=== PATIENT | female | born 1955 | race Caucasian/White ===

== ENCOUNTER 2018-10-29 05:13 | Inpatient (IN) | payer BC ==
[~2018-10-29] VITALS: Ht 165.1 cm; Wt 85.3 kg
[2018-10-29] VITALS (7 sets, daily range): BP systolic 94–108; BP diastolic 49–83
[~2018-10-29 05:13] MED LIST: BENICAR20 MG PO; NORCO 10-325 T1 EACH PO; PHENYTOIN SODI300 MG PO; SPIRONOLACTONE25 MG PO
--- OUTSIDE RECORDS SUMMARY | 2018-10-29 05:51 | XMS REPORT | Continuity of Care Document ---
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 Name Role Phone [facility] [email or web address] Information [email or web address] Unavailable Unavailable Problems Problem Status Onset Date Classification Date Reported Comments Source LUMBAR STENOSIS, SPONDYLOSIS, DISC DEGEN Active 11/17/2016 [facility] COPD (Confirmed) Active Problem 12/13/2016 [facility] Goiter Active Problem 12/13/2016 [facility] Hypertension Active Problem 12/13/2016 [facility] Seizures Active Problem 12/13/2016 [facility] Lumbar stenosis Active Problem 12/13/2016 [facility] Medications Medication Details Route Status Patient Instructions Ordering Provider Order Date Source tizanidine 4 mg oral capsule 4 mg=1 cap, PO, Q8H, PRN for muscle spasms, # 90 cap, 0 Refill(s), Pharmacy: [facility]/pharmacy #[id number] Active 12/10/2016 [facility] clindamycin 150 mg oral capsule 150 mg=1 cap, PO, Q6H, X 5 day, # 20 cap, 0 Refill(s), Pharmacy: [facility]/pharmacy #[id number] Active 12/10/2016 [facility] {21 (Methylprednisolone 4 MG Oral Tablet [Medrol]) } Pack [Medrol Dosepak] See Instructions, PO, Take by mouth as directed on label., # 1 Pack, 0 Refill(s), Pharmacy: [facility]/pharmacy #[id number] Active 12/10/2016 [facility] Acetaminophen 325 MG / Hydrocodone Bitartrate 10 MG Oral Tablet [[place] 10/325] 1 tab, PO, Q4H, PRN for pain, X 4 day, # 24 tab, 0 Refill(s) Active 12/10/2016 [facility] Protonix 40 mg, Route: IVP, Drug form: INJ, Daily, Dosing Weight 78.636, kg, Start date: 12/10/16 9:00:00 CDT, Duration: 30 day, Stop date: 01/08/17 9:00:00 CDTNotes: For IV push reconstitute with 10 ml 0.9% sodium chloride and push over 2 minutes. (Same as: Protonix) Inactive 12/10/2016 [facility] pneumococcal capsular polysaccharide type 1 vaccine / pneumococcal capsular polysaccharide type 10A vaccine / pneumococcal capsular polysaccharide type 11A vaccine / pneumococcal capsular polysaccharide type 12F vaccine / pneumococcal capsular polysacchar 0.5 mL, Route: IM, Drug Form: INJ, Daily, Start date: 12/10/16 9:00:00 CDT, Stop date: 12/10/16 23:59:00 CDTNotes: (Same as: Pneumovax 23) Inactive 12/10/2016 [facility] Dilantin 500 mg, 5 cap, Route: PO, Drug form: ERCAP, Bedtime, Dosing Weight 78.636, kg, Start date: 12/09/16 21:00:00 CDT, Duration: 30 day, Stop date: 01/07/17 21:00:00 CDTNotes: (Same as: Dilantin) Do not open, crush, or chew. No Longer Active 12/10/2016 [facility] Dexamethasone 4 mg, 1 mL, Route: IVP, Drug form: INJ, Q12H, Dosing Weight 78.636, kg, Start date: 12/09/16 21:00:00 CDT, Duration: 30 day, Stop date: 01/08/17 9:00:00 CDTNotes: Concentration: 4mg/ml No Longer Active 12/10/2016 [facility] Cefazolin 2 gm, Route: IVPB, ABXQ8H, Dosing Weight 78.636, kg, Start date: 12/09/16 18:30:00 CDT, Duration: 24 hr, Stop date: 12/10/16 10:30:00 CDT, ABX Indication: Surgical ProphylaxisNotes: (Same As: Jayden Byrd zol) MEDICATION WASTE Product Size: 1000 mg Product Wasted: ___ mg No Longer Active 12/09/2016 [facility] Docusate Sodium 100 MG Oral Capsule [Colace] 100 mg, 1 cap, Route: PO, Drug form: CAP, BID, Dosing Weight 78.636, kg, Start date: 12/09/16 17:00:00 CDT, Duration: 30 day, Stop date: 01/08/17 9:00:00 CDTNotes: (Same as: Colace) (Do Not Crush) No Longer Active 12/09/2016 [facility] Benzocaine 15 MG / Menthol 3.6 MG Lozenge [Cepacol Sore Throat Pain Relief 15/3.6] 1 lozenge, Route: MUCOUS MEM, Drug Form: LANEY, Dosing Weight 78.636, kg, Q2H, PRN Sore Throat, Start date: 12/09/16 15:34:00 CDT, Stop date: 01/08/17 15:33:00 CDTNotes: Cepacol lozenges (Same As: Cepacol Lozenges) Inactive 12/09/2016 [facility] acetaminophen (ANES) Route: IV, Drug form: INJ, ONCE, Stop date: 12/09/16 12:21:00 CDT Inactive 12/09/2016 [facility] vasopressin (ANES) Route: IV, Drug form: INJ, ONCE, Stop date: 12/09/16 12:21:00 CDT Inactive 12/09/2016 [facility] neostigmine (ANES) Route: IV, Drug form: INJ, ONCE, Stop date: 12/09/16 12:21:00 CDT Inactive 12/09/2016 [facility] ondansetron (ANES) Route: IV, Drug form: INJ, ONCE, Stop date: 12/09/16 12:21:00 CDT Inactive 12/09/2016 [facility] glycopyrrolate (ANES) Route: IV, Drug form: INJ, ONCE, Stop date: 12/09/16 12:21:00 CDT Inactive 12/09/2016 [facility] ketOROLAC 30 mg/mL injectable solution 15 mg, 1 mL, Route: IV, Drug form: INJ, Q6H, Dosing Weight 78.636, kg, Start date: 12/09/16 12:00:00 CDT, Duration: 1 day, Stop date: 12/10/16 6:00:00 CDTNotes: (Same as:Toradol) IV bolus must be given >15 seconds. Give IM administration slowly and deeply into the muscle. Not for use > 4 days. No Longer Active 12/09/2016 [facility] Ofirmev 1,000 mg, 100 mL, Route: IV, Drug form: INJ, Q6H, Dosing Weight 78.636, kg, for > or=50 kg, Start date: 12/09/16 12:00:00 CDT, Duration: 2 doses or times, Stop date: 12/09/16 18:00:00 CDTNotes: Infuse over 15 minutes Do not exceed 4gm/day of acetaminophen MEDICATION WASTE Product Size: 1000 mg Product Wasted: ___ mg Inactive 12/09/2016 [facility] ceFAZolin (ANES) Route: IV, Drug form: INJ, ONCE, Stop date: 12/09/16 11:05:00 CDT Inactive 12/09/2016 [facility] 120 ACTUAT Albuterol 0.1 MG/ACTUAT / Ipratropium [place] 0.02 MG/ACTUAT Metered Dose Inhaler [Combivent 20/100] 1 puff, Route: INHALER, Drug Form: AERO, Dosing Weight 78.636, kg, RQID, Start date: 12/09/16 11:00:00 CDT, Duration: 30 day, Stop date: 01/08/17 7:00:00 CDTNotes: Same as: Combivent Respimat WASTE: Aerosol - Return to Pharmacy No Longer Active 12/09/2016 [facility] fentaNYL (ANES) Route: IV, Drug form: INJ, ONCE, Stop date: 12/09/16 10:55:00 CDT Inactive 12/09/2016 [facility] ketAMINE (ANES) Route: IV, Drug form: INJ, ONCE, Stop date: 12/09/16 10:55:00 CDT Inactive 12/09/2016 [facility] propofol (ANES) Route: IV, Drug form: INJ, ONCE, Stop date: 12/09/16 10:55:00 CDT Inactive 12/09/2016 [facility] rocuronium (ANES) Route: IV, Drug form: INJ, ONCE, Stop date: 12/09/16 10:55:00 CDT Inactive 12/09/2016 [facility] ePHEDrine (ANES) Route: IV, Drug form: INJ, ONCE, Stop date: 12/09/16 10:55:00 CDT Inactive 12/09/2016 [facility] lidocaine (ANES) Route: IV, Drug form: INJ, ONCE, Stop date: 12/09/16 10:55:00 CDT Inactive 12/09/2016 [facility] Zofran 4 mg, 2 mL, Route: IV, Drug form: INJ, Q8H, Dosing Weight 78.636, kg, PRN Nausea, Start date: 12/09/16 10:25:00 CDT, Duration: 30 day, Stop date: 01/08/17 10:24:00 CDTNotes: (Same as: Zofran) MEDICATION WASTE Product Size: 4 mg Product Wasted: ___ mg No Longer Active 12/09/2016 [facility] Acetaminophen 325 MG / Hydrocodone Bitartrate 10 MG Oral Tablet [[place] 10/325] 1 tab, Route: PO, Drug Form: TAB, Dosing Weight 78.636, kg, Q4H, PRN Pain Score 1-3, Start date: 12/09/16 10:24:00 CDT, Duration: 30 day, Stop date: 01/08/17 10:23:00 CDTNotes: Do not exceed 4gm/day of acetaminophen. (Same as: [place] 325/10) No Longer Active 12/09/2016 [facility] Morphine 2 mg, 0.5 mL, Route: IVP, Drug form: SOLN, Q4H, Dosing Weight 78.636, kg, PRN Pain Score 4-6, Start date: 12/09/16 10:24:00 CDT, Stop date: 01/08/17 10:23:00 CDTNotes: (Same as:MORPhine Sulfate) No Longer Active 12/09/2016 [facility] Melatonin 3 mg, 1 tab, Route: PO, Drug form: TAB, Bedtime, Dosing Weight 78.636, kg, PRN as needed for insomnia, Start date: 12/09/16 10:24:00 CDT, Duration: 30 day, Stop date: 01/08/17 10:23:00 CDT, ..Notes: (Same as: Melatonin) No Longer Active 12/09/2016 [facility] Diphenhydramine 25 mg, 1 cap, Route: PO, Drug form: CAP, TID, Dosing Weight 78.636, kg, PRN Itching, Start date: 12/09/16 10:24:00 CDT, Duration: 30 day, Stop date: 01/08/17 10:23:00 CDTNotes: (Same as: Benadryl) No Longer Active 12/09/2016 [facility] tizanidine 4 mg, 1 tab, Route: PO, Drug form: TAB, Q8H, Dosing Weight 78.636, kg, PRN as needed for muscle spasm, Start date: 12/09/16 10:24:00 CDT, Duration: 30 day, Stop date: 01/08/17 10:23:00 CDTNotes: (Same As: Zanaflex) No Longer Active 12/09/2016 [facility] sennosides, [facility] 8.6 mg, 1 tab, Route: PO, Drug Form: TAB, Dosing Weight 78.636, kg, Daily, PRN Constipation, Start date: 12/09/16 10:24:00 CDT, Duration: 30 day, Stop date: 01/08/17 10:23:00 CDTNotes: (Same as: Senokot) No Longer Active 12/09/2016 [facility] Phenergan 12.5 mg, 0.5 mL, Route: IVPB, Drug form: INJ, Q4H, Dosing Weight 78.636, kg, PRN Nausea & Vomiting, Start date: 12/09/16 10:24:00 CDT, Duration: 30 day, Stop date: 01/08/17 10:23:00 CDTNotes: Do not give IV push. (Same as: Phenergan) No Longer Active 12/09/2016 [facility] sodium chloride 0.9% 1000 ml INJ 1,000 mL 1,000 mL, Rate: 65 ml/hr, Infuse over: 15.4 hr, Route: IV, Dosing Weight 78.636 kg, Total Volume: 1,000, Start date: 12/09/16 10:24:00 CDT, Duration: 30 day, Stop date: 01/08/17 10:23:00 CDT No Longer Active 12/09/2016 [facility] cyclobenzaprine 10 mg, 1 tab, Route: PO, Drug form: TAB, TID, Dosing Weight 78.636, kg, PRN Spasm, Start date: 12/09/16 10:23:00 CDT, Duration: 30 day, Stop date: 01/08/17 10:22:00 CDTNotes: (Same As: Flexeril) No Longer Active 12/09/2016 [facility] Benzocaine 15 MG / Menthol 3.6 MG Lozenge [Cepacol Sore Throat Pain Relief 15/3.6] 1 lozenge, Route: PO, Drug Form: LANEY, Dosing Weight 78.636, kg, Q2H, PRN as needed for sore throat, Start date: 12/09/16 10:23:00 CDT, Duration: 30 day, Stop date: 01/08/17 10:22:00 CDTNotes: Cepacol lozenges Dispense 1 box=16 lozenges (Same As: Cepacol Lozenges) No Longer Active 12/09/2016 [facility] Ambien 10 mg, 2 tab, Route: PO, Drug form: TAB, Bedtime, Dosing Weight 78.636, kg, PRN Insomnia, Start date: 12/09/16 10:23:00 CDT, Duration: 30 day, Stop date: 01/08/17 10:22:00 CDTNotes: (Same As: Ambien) No Longer Active 12/09/2016 [facility] midazolam (ANES) Route: IV, Drug form: SOLN, ONCE, Stop date: 12/09/16 10:20:00 CDT Inactive 12/09/2016 [facility] Ondansetron 4 mg, 2 mL, Route: IVP, Drug form: INJ, ONCE, Dosing Weight 78.636, kg, PRN Nausea & Vomiting, Start date: 12/09/16 10:05:00 CDTNotes: (Same as: Zofran) MEDICATION WASTE Product Size: 4 mg Product Wasted: ___ mg Inactive 12/09/2016 [facility] Labetalol 10 mg, 2 mL, Route: IVP, Drug form: INJ, Q5Min, Dosing Weight 78.636, kg, PRN Elevated BP, Start date: 12/09/16 10:05:00 CDT, Duration: 5 doses or times, Stop date: 12/10/16 0:00:00 CDT Inactive 12/09/2016 [facility] Hydralazine 10 mg, 0.5 mL, Route: IVP, Drug form: INJ, Q20Min, Dosing Weight 78.636, kg, PRN Elevated BP, Start date: 12/09/16 10:05:00 CDT, Duration: 2 doses or times, Stop date: 12/10/16 0:00:00 CDTNotes: (Same as: Apresoline) Push over 5 minutes Inactive 12/09/2016 [facility] Hydromorphone 0.5 mg, 0.25 mL, Route: IVP, Drug form: INJ, Q5Min, Dosing Weight 78.636, kg, PRN Pain Score 7-10, Start date: 12/09/16 10:05:00 CDT, Duration: 4 doses or times, Stop date: 12/10/16 0:00:00 CDTNotes: Same as: Dilaudid Inactive 12/09/2016 [facility] Oxycodone 5 mg, 1 tab, Route: PO, Drug form: TAB, Q4H, Dosing Weight 78.636, kg, PRN Pain Score 7-10, Start date: 12/09/16 10:05:00 CDT, Duration: 30 day, Stop date: 01/08/17 10:04:00 CDTNotes: (Same as: Roxic odone) Inactive 12/09/2016 [facility] Flumazenil 0.2 mg, 2 mL, Route: IVP, Drug form: INJ, PRN, Dosing Weight 78.636, kg, PRN Benzodiazepine Reversal, Initial dose, Start date: 12/09/16 10:05:00 CDT, Duration: 30 day, Stop date: 01/08/17 10:04:00 C DTNotes: (Same as: Romazicon) Inactive 12/09/2016 [facility] Naloxone 0.4 mg, 1 mL, Route: IVP, Drug form: INJ, Q2MIN, Dosing Weight 78.636, kg, PRN Narcotic Reversal, Start date: 12/09/16 10:05:00 CDT, Duration: 8 doses or times, Stop date: 12/10/16 0:00:00 CDTNotes: Same as Narcan Inactive 12/09/2016 [facility] LR 1000 mL INJ (ANES) Route: IV, Total Volume: 1,000, Start date: 12/09/16 9:45:00 CDT, Stop date: 12/09/16 10:45:00 CDT Inactive 12/09/2016 [facility] gabapentin 300 MG Oral Capsule 300 mg, 1 cap, Route: PO, Drug form: CAP, ONCE, Dosing Weight 78.636, kg, Priority: NOW, Start date: 12/09/16 9:09:00 CDT, Stop date: 12/09/16 9:09:00 CDT Inactive 12/09/2016 [facility] Amlodipine 5 mg, 1 tab, Route: PO, Drug form: TAB, Daily, Dosing Weight 78.636, kg, Start date: 12/09/16 9:00:00 CDT, Duration: 30 day, Stop date: 01/07/17 9:00:00 CDTNotes: (Same as: Norvasc) No Longer Active 12/09/2016 [facility] Alprazolam 0.25 mg, PO, PRN Active 12/07/2016 [facility] Triamcinolone Acetonide in Absorbase 1 appl, TOP Active 12/07/2016 [facility] Hydroxyzine 25 mg, PO, QID Active 12/07/2016 [facility] Acetaminophen 325 MG / Hydrocodone Bitartrate 5 MG Oral Tablet 1 tab, PO, PRN No Longer Active 12/07/2016 [facility] Dilantin 500 mg, PO, Bedtime Active 12/07/2016 [facility] Allergies, Adverse Reactions, Alerts No Known Medication Allergies Immunizations Immunization Date Given Site Status Last Updated Comments Source pneumococcal 23-valent vaccine 12/10/2016 Left Deltoid completed [facility] Results Order Name Results Value Reference Range Date Interpretation Comments Source ELECTROLYTES AGAP 6.6 10.0 - 20.0 12/07/2016 [facility] ELECTROLYTES eGFR 102 12/07/2016 Result Comment: The eGFR is calculated using the CKD-EPI formula. In most young, healthy individuals the eGFR will be >90 mL/min/1.73m2. The eGFR declines with age. An eGFR of 60-89 may be normal in some populations, particularly the elderly, for whom the CKD-EPI formula has not been extensively validated. Use of the eGFR is not recommended in the following populations:

Individuals with unstable creatinine concentrations, including patients and those with serious co-morbid conditions.

Patients with extremes in muscle mass or diet.

The data above are obtained from the National Kidney Disease Education Program (NKDEP) which additionally recommends that when the eGFR is used in patients with extremes of body mass index for purposes of drug dosing, the eGFR should be multiplied by the estimated BMI. [facility] ELECTROLYTES Chloride Lvl 105 95 - 109 12/07/2016 [facility] ELECTROLYTES Potassium Lvl 4.6 3.5 - 5.1 12/07/2016 [facility] ELECTROLYTES CO2 32 24 - 32 12/07/2016 [facility] ELECTROLYTES Calcium Lvl 8.9 8.5 - 10.5 12/07/2016 [facility] ELECTROLYTES Glucose Lvl 74 70 - 99 12/07/2016 [facility] ELECTROLYTES Sodium Lvl 139 135 - 145 12/07/2016 [facility] ELECTROLYTES Creatinine Lvl 0.54 0.50 - 1.40 12/07/2016 [facility] ELECTROLYTES BUN 11 7 - 22 12/07/2016 [facility] HEMATOLOGY Basophils 0.7 0.0 - 1.0 12/07/2016 [facility] HEMATOLOGY Eosinophils 5.1 0.0 - 4.0 12/07/2016 [facility] HEMATOLOGY Segs-Bands # 4.0 1.5 - 8.1 12/07/2016 [facility] HEMATOLOGY Basophils # 0.1 0.0 - 0.2 12/07/2016 [facility] HEMATOLOGY Monocytes # 0.6 0.0 - 0.8 12/07/2016 [facility] HEMATOLOGY Lymphocytes # 2.4 1.0 - 5.5 12/07/2016 [facility] HEMATOLOGY Eosinophils # 0.4 0.0 - 0.5 12/07/2016 [facility] HEMATOLOGY Segs 53.7 45.0 - 75.0 12/07/2016 [facility] HEMATOLOGY Lymphocytes 32.6 20.0 - 40.0 12/07/2016 [facility] HEMATOLOGY Monocytes 7.9 2.0 - 12.0 12/07/2016 [facility] HEMATOLOGY WBC 7.4 3.7 - 10.4 12/07/2016 [facility] HEMATOLOGY Hct 39.6 36.0 - 48.0 12/07/2016 [facility] HEMATOLOGY MCV 90.3 80.0 - 98.0 12/07/2016 [facility] HEMATOLOGY MCHC 33.3 32.0 - 36.0 12/07/2016 [facility] HEMATOLOGY RDW 13.4 11.5 - 14.5 12/07/2016 [facility] HEMATOLOGY MCH 30.0 27.0 - 31.0 12/07/2016 [facility] HEMATOLOGY Hgb 13.2 12.0 - 16.0 12/07/2016 [facility] HEMATOLOGY RBC 4.38 4.20 - 5.40 12/07/2016 [facility] HEMATOLOGY MPV 7.5 7.4 - 10.4 12/07/2016 [facility] HEMATOLOGY Platelet 265 133 - 450 12/07/2016 [facility] Pathology Reports No Data Provided for This Section Diagnostic Reports No Data Provided for This Section Consultation Notes No Data Provided for This Section Discharge Summaries No Data Provided for This Section History and Physicals No Data Provided for This Section Vital Signs Vital Sign Value Date Comments Source Systolic (mm Hg) 129 12/10/2016 [facility] Diastolic (mm Hg) 79 12/10/2016 [facility] Heart Rate 80 12/10/2016 [facility] Respitory Rate 18 12/10/2016 [facility] Systolic (mm Hg) 110 12/10/2016 [facility] Diastolic (mm Hg) 69 12/10/2016 [facility] Respitory Rate 18 12/10/2016 [facility] Temperature Oral (F) 97.4 F 12/10/2016 [facility] Heart Rate 79 12/10/2016 [facility] Systolic (mm Hg) 109 12/10/2016 [facility] Diastolic (mm Hg) 57 12/10/2016 [facility] Temperature Oral (F) 98.1 F 12/10/2016 [facility] Heart Rate 80 12/10/2016 [facility] Respitory Rate 16 12/10/2016 [facility] Temperature Oral (F) 97.6 F 12/10/2016 [facility] Weight 78.636 12/09/2016 [facility] BMI Calculated 28.85 12/09/2016 [facility] Height 165.1 cm 12/09/2016 [facility] Weight 78.636 12/07/2016 [facility] BMI Calculated 28.85 12/07/2016 [facility] Height 165.1 cm 12/07/2016 [facility] Encounters Location Location Details Encounter Type Encounter Number Reason For Visit Attending Provider ADM Date DC Date Status Source [facility] Bedded Outpatient [id number] Steve Tam 12/09/2016 12/10/2016 [facility] Procedures Procedure Code Date Perfomer Comments Source Incision AND drainage [id number] [facility] Operative procedure on foot [id number] [facility] Procedure on back [id number] [facility] Tonsillectomy [id number] [facility] Assessment and Plan Assessment and Plan Date Source Extracted from:Title: POD#1 Author: Boyd Cano Date: 12/10/16 POD#1 Afeb VSS Hemovac with 270 out since surgery She has moderate pain at the wound; she feels her legs are wobbly but stronger than pre-op Motor is without chnage on exam but she looks to be moving about better than pre-op Sensory is equal. Reflexes are symmetrical Wound is intact without EED. Hemovac is occluded. Can not get it to drain so I removed it. Cleaned and redressed the wound. Voiding well. No BM Taking po well. No N/V A/P Home RX her a walker as I feel it will benefit her F/U in 4 weeks RXs given D/W Tam Cano PA-C 12/10/2016 [facility] Plan of Care No Data Provided for This Section Social History Social History Date Source Social History TypeResponse Alcohol Past Smoking Status Former smoker; Type: Cigarettes; Number of years: 30; Stopped at age: 43; Exposure to Tobacco Smoke None; Cigarette Smoking Last 365 Days No; Reg Smoking Cessation Counseling No 12/07/2016 [facility] Family History No Data Provided for This Section Advance Directives No Data Provided for This Section Functional Status No Data Provided for This Section
--- OUTSIDE RECORDS SUMMARY | 2018-10-29 05:51 | XMS REPORT | Summary of Care ---
Author Author [facility] Organization [facility] Address Unknown Phone Unavailable Encounter KEATON Soto(LARS) [id number] Date(s): 12/09/16 - 12/10/16 [facility] [address] [employer] provided by [facility] [place] [address]- Discharge Disposition: Home or Self Care Attending Physician: Steve Turcios DO Referring Physician: Steve Turcios DO Vital Signs 1 2 3 Most recent to oldest [Reference Range]: 165.1 cm (12/09/16 8:25 AM) 165.1 cm (12/07/16 10:32 AM) Height 97.4 DegF (12/10/16 7:35 AM) 98.1 DegF (12/10/16 4:15 AM) 97.6 DegF (12/09/16 11:20 PM) Temperature Oral [96.4-99.1 DegF] 129/79 mmHg (12/10/16 10:15 AM) 110/69 mmHg (12/10/16 7:35 AM) 109/57 mmHg (12/10/16 7:00 AM) Blood Pressure [90-140/60-90 mmHg] 18 BRMIN (12/10/16 8:41 AM) 18 BRMIN (12/10/16 7:35 AM) 16 BRMIN (12/10/16 4:15 AM) Respiratory Rate [14-20 BRMIN] 80 bpm (12/10/16 10:15 AM) 79 bpm (12/10/16 7:35 AM) 80 bpm (12/10/16 4:15 AM) Peripheral Pulse Rate [60-100 bpm] 78.636 kg (12/09/16 8:25 AM) 78.636 kg (12/07/16 10:32 AM) Weight 28.85 m2 (12/09/16 8:25 AM) 28.85 m2 (12/07/16 10:32 AM) Body Mass Index Problem List Condition Effective Dates Status Health Status Informant COPD (chronic Active obstructive pulmonary disease)(Confirmed) Goiter(Confirmed) Active Hypertension(Confirm Active ed) Seizures(Confirmed) Active Lumbar Active stenosis(Confirmed) Allergies, Adverse Reactions, Alerts Substance Reaction Severity Status NKDA Active Medications acetaminophen (ANES) Route: IV, Drug form: INJ, ONCE, Stop date: 12/09/16 12:21:00 CDT Start Date: 12/09/16 Stop Date: 12/09/16 Status: Completed acetaminophen-hydrocodone 325 mg-5 mg oral tablet 1 tab, PO, PRN Start Date: 12/07/16 Stop Date: 12/10/16 Status: Discontinued ALPRAZOLam 0.25 mg, PO, PRN Start Date: 12/07/16 Status: Ordered Ambien 10 mg, 2 tab, Route: PO, Drug form: TAB, Bedtime, Dosing Weight 78.636, kg, PRN Insomnia, Start date: 12/09/16 10:23:00 CDT, Duration: 30 day, Stop date: 10:22:00 CDT Notes: (Same As: Ambien) Start Date: 12/09/16 Stop Date: 12/10/16 Status: Discontinued amLODIPine 5 mg, 1 tab, Route: PO, Drug form: TAB, Daily, Dosing Weight 78.636, kg, Start d ate: 12/09/16 9:00:00 CDT, Duration: 30 day, Stop date: 01/07/17 9:00:00 CDT Notes: (Same as: Norvasc) Start Date: 12/09/16 Stop Date: 12/10/16 Status: Discontinued ANES flumazenil 0.2 mg, 2 mL, Route: IVP, Drug form: INJ, PRN, Dosing Weight 78.636, kg, PRN Harjeet zodiazepine Reversal, Initial dose, Start date: 12/09/16 10:05:00 CDT, Duration: 30 day, Stop date: 01/08/17 10:04:00 CDT Notes: (Same as: Romazicon) Start Date: 12/09/16 Stop Date: 12/09/16 Status: Discontinued ANES hydrALAZINE 10 mg, 0.5 mL, Route: IVP, Drug form: INJ, Q20Min, Dosing Weight 78.636, kg, PRN Elevated BP, Start date: 12/09/16 10:05:00 CDT, Duration: 2 doses or times, Stop date: 12/10/16 0:00:00 CDT Notes: (Same as: Apresoline)Push over 5 minutes Start Date: 12/09/16 Stop Date: 12/09/16 Status: Discontinued ANES HYDROmorphone 0.5 mg, 0.25 mL, Route: IVP, Drug form: INJ, Q5Min, Dosing Weight 78.636, kg, NC N Pain Score 7-10, Start date: 12/09/16 10:05:00 CDT, Duration: 4 doses or times , Stop date: 12/10/16 0:00:00 CDT Notes: Same as: Dilaudid Start Date: 12/09/16 Stop Date: 12/09/16 Status: Discontinued ANES labetalol 10 mg, 2 mL, Route: IVP, Drug form: INJ, Q5Min, Dosing Weight 78.636, kg, PRN El evated BP, Start date: 12/09/16 10:05:00 CDT, Duration: 5 doses or times, Stop d ate: 12/10/16 0:00:00 CDT Start Date: 12/09/16 Stop Date: 12/09/16 Status: Discontinued ANES naloxone 0.4 mg, 1 mL, Route: IVP, Drug form: INJ, Q2MIN, Dosing Weight 78.636, kg, PRN N arcotic Reversal, Start date: 12/09/16 10:05:00 CDT, Duration: 8 doses or times, Stop date: 12/10/16 0:00:00 CDT Notes: Same as Narcan Start Date: 12/09/16 Stop Date: 12/09/16 Status: Discontinued ANES ondansetron 4 mg, 2 mL, Route: IVP, Drug form: INJ, ONCE, Dosing Weight 78.636, kg, PRN Naus ea & Vomiting, Start date: 12/09/16 10:05:00 CDT Notes: (Same as: Leonardo) MEDICATION WASTE Product Size: 4 mgProduct Was dante: ___ mg Start Date: 12/09/16 Stop Date: 12/09/16 Status: Discontinued ANES oxyCODONE 5 mg, 1 tab, Route: PO, Drug form: TAB, Q4H, Dosing Weight 78.636, kg, PRN Pain Score 7-10, Start date: 12/09/16 10:05:00 CDT, Duration: 30 day, Stop date: 11/17 10:04:00 CDT Notes: (Same as: Roxicodone) Start Date: 12/09/16 Stop Date: 12/09/16 Status: Discontinued ceFAZolin (ANES) Route: IV, Drug form: INJ, ONCE, Stop date: 12/09/16 11:05:00 CDT Start Date: 12/09/16 Stop Date: 12/09/16 Status: Completed ceFAZolin (SCIP) + sodium chloride 0.9% INJ 100 mL 2 gm, Route: IVPB, ABXQ8H, Dosing Weight 78.636, kg, Start date: 12/09/16 18:30: 00 CDT, Duration: 24 hr, Stop date: 12/10/16 10:30:00 CDT, ABX Indication: Surgi yasmani Prophylaxis Notes: (Same As: Napoleon Byrd) MEDICATION WASTE Product Size: 1000 mgP roduct Wasted: ___ mg Start Date: 12/09/16 Stop Date: 12/10/16 Status: Completed Cepacol Sore Throat 15 mg-3.6 mg mucous membrane lozenge 1 lozenge, Route: MUCOUS MEM, Drug Form: LANEY, Dosing Weight 78.636, kg, Q2H, PRN Sore Throat, Start date: 12/09/16 15:34:00 CDT, Stop date: 01/08/17 15:33:00 CDT Notes: Cepacol lozenges(Same As: Cepacol Lozenges) Start Date: 12/09/16 Stop Date: 12/09/16 Status: Deleted Cepacol Sore Throat Calle Sugar Free 15 mg-3.6 mg mucous membrane lozenge 1 lozenge, Route: PO, Drug Form: LANEY, Dosing Weight 78.636, kg, Q2H, PRN as need ed for sore throat, Start date: 12/09/16 10:23:00 CDT, Duration: 30 day, Stop da te: 01/08/17 10:22:00 CDT Notes: Cepacol lozengesDispense 1 box=16 lozenges (Same As: Cepacol Lozenges) Start Date: 12/09/16 Stop Date: 12/10/16 Status: Discontinued clindamycin 150 mg oral capsule 150 mg=1 cap, PO, Q6H, X 5 day, # 20 cap, 0 Refill(s), Pharmacy: [facility]/pharmacy #[id number] Start Date: 12/10/16 Stop Date: 12/15/16 Status: Ordered Colace 100 mg oral capsule 100 mg, 1 cap, Route: PO, Drug form: CAP, BID, Dosing Weight 78.636, kg, Start d ate: 12/09/16 17:00:00 CDT, Duration: 30 day, Stop date: 01/08/17 9:00:00 CDT Notes: (Same as: Colace) (Do Not Crush) Start Date: 12/09/16 Stop Date: 12/10/16 Status: Discontinued Combivent Respimat CFC free 100 mcg-20 mcg/inh inhalation aerosol 1 puff, Route: INHALER, Drug Form: AERO, Dosing Weight 78.636, kg, RQID, Start d ate: 12/09/16 11:00:00 CDT, Duration: 30 day, Stop date: 01/08/17 7:00:00 CDT Notes: Same as: Combivent RespimatWASTE: Aerosol - Return to Pharmacy Start Date: 12/09/16 Stop Date: 12/10/16 Status: Discontinued cyclobenzaprine 10 mg, 1 tab, Route: PO, Drug form: TAB, TID, Dosing Weight 78.636, kg, PRN Spas m, Start date: 12/09/16 10:23:00 CDT, Duration: 30 day, Stop date: 01/08/17 10:2 2:00 CDT Notes: (Same As: Flexeril) Start Date: 12/09/16 Stop Date: 12/10/16 Status: Discontinued dexamethasone 4 mg, 1 mL, Route: IVP, Drug form: INJ, Q12H, Dosing Weight 78.636, kg, Start da te: 12/09/16 21:00:00 CDT, Duration: 30 day, Stop date: 01/08/17 9:00:00 CDT Notes: Concentration: 4mg/ml Start Date: 12/09/16 Stop Date: 12/10/16 Status: Discontinued Dilantin 500 mg, 5 cap, Route: PO, Drug form: ERCAP, Bedtime, Dosing Weight 78.636, kg, S tart date: 12/09/16 21:00:00 CDT, Duration: 30 day, Stop date: 01/07/17 21:00:00 CDT Notes: (Same as: Dilantin) Do not open, crush, or chew. Start Date: 12/09/16 Stop Date: 12/10/16 Status: Discontinued Dilantin 500 mg, PO, Bedtime Start Date: 12/07/16 Status: Ordered diphenhydrAMINE 25 mg, 1 cap, Route: PO, Drug form: CAP, TID, Dosing Weight 78.636, kg, PRN Itch ing, Start date: 12/09/16 10:24:00 CDT, Duration: 30 day, Stop date: 01/08/17 10 :23:00 CDT Notes: (Same as: Benadryl) Start Date: 12/09/16 Stop Date: 12/10/16 Status: Discontinued ePHEDrine (ANES) Route: IV, Drug form: INJ, ONCE, Stop date: 12/09/16 10:55:00 CDT Start Date: 12/09/16 Stop Date: 12/09/16 Status: Completed fentaNYL (ANES) Route: IV, Drug form: INJ, ONCE, Stop date: 12/09/16 10:55:00 CDT Start Date: 12/09/16 Stop Date: 12/09/16 Status: Completed gabapentin 300 mg oral capsule 300 mg, 1 cap, Route: PO, Drug form: CAP, ONCE, Dosing Weight 78.636, kg, Priori ty: NOW, Start date: 12/09/16 9:09:00 CDT, Stop date: 12/09/16 9:09:00 CDT Start Date: 12/09/16 Stop Date: 12/09/16 Status: Completed glycopyrrolate (ANES) Route: IV, Drug form: INJ, ONCE, Stop date: 12/09/16 12:21:00 CDT Start Date: 12/09/16 Stop Date: 12/09/16 Status: Completed hydrOXYzine 25 mg, PO, QID Start Date: 12/07/16 Status: Ordered ketAMINE (ANES) Route: IV, Drug form: INJ, ONCE, Stop date: 12/09/16 10:55:00 CDT Start Date: 12/09/16 Stop Date: 12/09/16 Status: Completed ketOROLAC 30 mg/mL injectable solution 15 mg, 1 mL, Route: IV, Drug form: INJ, Q6H, Dosing Weight 78.636, kg, Start noreen e: 12/09/16 12:00:00 CDT, Duration: 1 day, Stop date: 12/10/16 6:00:00 CDT Notes: (Same as:Toradol) IV bolus must be given >15 seconds. Give IM administration slowly and deeply into the muscle. Not for use > 4 days. Start Date: 12/09/16 Stop Date: 12/10/16 Status: Completed lidocaine (ANES) Route: IV, Drug form: INJ, ONCE, Stop date: 12/09/16 10:55:00 CDT Start Date: 12/09/16 Stop Date: 12/09/16 Status: Completed LR 1000 mL INJ (ANES) Route: IV, Total Volume: 1,000, Start date: 12/09/16 9:45:00 CDT, Stop date: 11/17 10:45:00 CDT Start Date: 12/09/16 Stop Date: 12/09/16 Status: Completed Medrol Dosepak 4 mg oral tablet See Instructions, PO, Take by mouth as directed on label., # 1 Pack, 0 Refill(s) , Pharmacy: [facility]/pharmacy #[id number] Start Date: 12/10/16 Stop Date: 12/16/16 Status: Ordered melatonin 3 mg, 1 tab, Route: PO, Drug form: TAB, Bedtime, Dosing Weight 78.636, kg, PRN a s needed for insomnia, Start date: 12/09/16 10:24:00 CDT, Duration: 30 day, Stop date: 01/08/17 10:23:00 CDT, .. Notes: (Same as: Melatonin) Start Date: 12/09/16 Stop Date: 12/10/16 Status: Discontinued midazolam (ANES) Route: IV, Drug form: SOLN, ONCE, Stop date: 12/09/16 10:20:00 CDT Start Date: 12/09/16 Stop Date: 12/09/16 Status: Completed morphine Sulfate 2 mg, 0.5 mL, Route: IVP, Drug form: SOLN, Q4H, Dosing Weight 78.636, kg, PRN Pa in Score 4-6, Start date: 12/09/16 10:24:00 CDT, Stop date: 01/08/17 10:23:00 CD T Notes: (Same as:MORPhine Sulfate) Start Date: 12/09/16 Stop Date: 12/10/16 Status: Discontinued morphine Sulfate 4 mg, 1 mL, Route: IVP, Drug form: SOLN, Q4H, Dosing Weight 78.636, kg, PRN Pain Score 7-10, Start date: 12/09/16 10:24:00 CDT, Stop date: 01/08/17 10:23:00 CDT Notes: (Same as:MORPhine Sulfate) Start Date: 12/09/16 Stop Date: 12/10/16 Status: Discontinued neostigmine (ANES) Route: IV, Drug form: INJ, ONCE, Stop date: 12/09/16 12:21:00 CDT Start Date: 12/09/16 Stop Date: 12/09/16 Status: Completed [place] 10/325 oral tablet 1 tab, Route: PO, Drug Form: TAB, Dosing Weight 78.636, kg, Q4H, PRN Pain Score 1-3, Start date: 12/09/16 10:24:00 CDT, Duration: 30 day, Stop date: 01/08/17 10 :23:00 CDT Notes: Do not exceed 4gm/day of acetaminophen. (Same as: [place] 325/10) Start Date: 12/09/16 Stop Date: 12/10/16 Status: Discontinued [place] 10/325 oral tablet 1 tab, PO, Q4H, PRN for pain, X 4 day, # 24 tab, 0 Refill(s) Start Date: 12/10/16 Stop Date: 12/14/16 Status: Ordered Ofirmev 1,000 mg, 100 mL, Route: IV, Drug form: INJ, Q6H, Dosing Weight 78.636, kg, for > or=50 kg, Start date: 12/09/16 12:00:00 CDT, Duration: 2 doses or times, Stop date: 12/09/16 18:00:00 CDT Notes: Infuse over 15 minutesDo not exceed 4gm/day of acetaminophen MEDICAT ION WASTE Product Size: 1000 mgProduct Wasted: ___ mg Start Date: 12/09/16 Stop Date: 12/09/16 Status: Completed ondansetron (ANES) Route: IV, Drug form: INJ, ONCE, Stop date: 12/09/16 12:21:00 CDT Start Date: 12/09/16 Stop Date: 12/09/16 Status: Completed Phenergan 12.5 mg, 0.5 mL, Route: IVPB, Drug form: INJ, Q4H, Dosing Weight 78.636, kg, PRN Nausea & Vomiting, Start date: 12/09/16 10:24:00 CDT, Duration: 30 day, Stop date: 01/08/17 10:23:00 CDT Notes: Do not give IV push. (Same as: Phenergan) Start Date: 12/09/16 Stop Date: 12/10/16 Status: Discontinued pneumococcal 23-valent vaccine 0.5 mL, Route: IM, Drug Form: INJ, Daily, Start date: 12/10/16 9:00:00 CDT, Stop date: 12/10/16 23:59:00 CDT Notes: (Same as: Pneumovax 23) Start Date: 12/10/16 Stop Date: 12/10/16 Status: Discontinued propofol (ANES) Route: IV, Drug form: INJ, ONCE, Stop date: 12/09/16 10:55:00 CDT Start Date: 12/09/16 Stop Date: 12/09/16 Status: Completed Protonix 40 mg, Route: IVP, Drug form: INJ, Daily, Dosing Weight 78.636, kg, Start date: 12/10/16 9:00:00 CDT, Duration: 30 day, Stop date: 01/08/17 9:00:00 CDT Notes: For IV push reconstitute with 10 ml 0.9% sodium chloride and push over 2 minutes. (Same as: Protonix) Start Date: 12/10/16 Stop Date: 12/10/16 Status: Discontinued rocuronium (ANES) Route: IV, Drug form: INJ, ONCE, Stop date: 12/09/16 10:55:00 CDT Start Date: 12/09/16 Stop Date: 12/09/16 Status: Completed senna 8.6 mg, 1 tab, Route: PO, Drug Form: TAB, Dosing Weight 78.636, kg, Daily, PRN C onstipation, Start date: 12/09/16 10:24:00 CDT, Duration: 30 day, Stop date: 11/17 10:23:00 CDT Notes: (Same as: Senokot) Start Date: 12/09/16 Stop Date: 12/10/16 Status: Discontinued sodium chloride 0.9% 1000 ml INJ 1,000 mL 1,000 mL, Rate: 65 ml/hr, Infuse over: 15.4 hr, Route: IV, Dosing Weight 78.636 kg, Total Volume: 1,000, Start date: 12/09/16 10:24:00 CDT, Duration: 30 day, St op date: 01/08/17 10:23:00 CDT Start Date: 12/09/16 Stop Date: 12/10/16 Status: Discontinued tizanidine 4 mg, 1 tab, Route: PO, Drug form: TAB, Q8H, Dosing Weight 78.636, kg, PRN as ne eded for muscle spasm, Start date: 12/09/16 10:24:00 CDT, Duration: 30 day, Stop date: 01/08/17 10:23:00 CDT Notes: (Same As: Zanaflex) Start Date: 12/09/16 Stop Date: 12/10/16 Status: Discontinued tizanidine 4 mg oral capsule 4 mg=1 cap, PO, Q8H, PRN for muscle spasms, # 90 cap, 0 Refill(s), Pharmacy: [facility] /pharmacy #[id number] Start Date: 12/10/16 Status: Ordered Triamcinolone Acetonide in Absorbase 1 appl, TOP Start Date: 12/07/16 Status: Ordered vasopressin (ANES) Route: IV, Drug form: INJ, ONCE, Stop date: 12/09/16 12:21:00 CDT Start Date: 12/09/16 Stop Date: 12/09/16 Status: Completed Zofran 4 mg, 2 mL, Route: IV, Drug form: INJ, Q8H, Dosing Weight 78.636, kg, PRN Nausea , Start date: 12/09/16 10:25:00 CDT, Duration: 30 day, Stop date: 01/08/17 10:24 :00 CDT Notes: (Same as: Zofran) MEDICATION WASTE Product Size: 4 mgProduct Was dante: ___ mg Start Date: 12/09/16 Stop Date: 12/10/16 Status: Discontinued Results ELECTROLYTES Most recent to 1 oldest [Reference Range]: Sodium Lvl [135-145 139 mEq/L mEq/L] (12/07/16 8:45 AM) Potassium Lvl 4.6 mEq/L [3.5-5.1 mEq/L] (12/07/16 8:45 AM) Chloride Lvl [95-109 105 mEq/L mEq/L] (12/07/16 8:45 AM) CO2 [24-32 mEq/L] 32 mEq/L (12/07/16 8:45 AM) AGAP [10.0-20.0 6.6 mEq/L mEq/L] *LOW* (12/07/16 8:45 AM) CHEM PANEL Most recent to 1 oldest [Reference Range]: Creatinine Lvl 0.54 mg/dL [0.50-1.40 mg/dL] (12/07/16 8:45 AM) eGFR 102 mL/min/1.73m2 1 *NA* (12/07/16 8:45 AM) BUN [7-22 mg/dL] 11 mg/dL (12/07/16 8:45 AM) Glucose Lvl [70-99 74 mg/dL mg/dL] (12/07/16 8:45 AM) Calcium Lvl 8.9 mg/dL [8.5-10.5 mg/dL] (12/07/16 8:45 AM) 1Result Comment: The eGFR is calculated using the [...] from the National Kidney Disease Education Program ( NKDEP) which additionally recommends that when the eGFR is used in patients with extremes of body mass index for purposes of drug dosing, the eGFR should be mul tiplied by the estimated BMI. HEMATOLOGY Most recent to 1 oldest [Reference Range]: WBC [3.7-10.4 K/CMM] 7.4 K/CMM (12/07/16 8:45 AM) RBC [4.20-5.40 4.38 M/CMM M/CMM] (12/07/16 8:45 AM) Hgb [12.0-16.0 g/dL] 13.2 g/dL (12/07/16 8:45 AM) Hct [36.0-48.0 %] 39.6 % (12/07/16 8:45 AM) MCV [80.0-98.0 fL] 90.3 fL (12/07/16 8:45 AM) MCH [27.0-31.0 pg] 30.0 pg (12/07/16 8:45 AM) MCHC [32.0-36.0 33.3 g/dL g/dL] (12/07/16 8:45 AM) RDW [11.5-14.5 %] 13.4 % (12/07/16 8:45 AM) Platelet [133-450 265 K/CMM K/CMM] (12/07/16 8:45 AM) MPV [7.4-10.4 fL] 7.5 fL (12/07/16 8:45 AM) Segs [45.0-75.0 %] 53.7 % (12/07/16 8:45 AM) Lymphocytes 32.6 % [20.0-40.0 %] (12/07/16 8:45 AM) Monocytes [2.0-12.0 7.9 % %] (12/07/16 8:45 AM) Eosinophils [0.0-4.0 5.1 % %] *HI* (12/07/16 8:45 AM) Basophils [0.0-1.0 0.7 % %] (12/07/16 8:45 AM) Segs-Bands # 4.0 K/CMM [1.5-8.1 K/CMM] (12/07/16 8:45 AM) Lymphocytes # 2.4 K/CMM [1.0-5.5 K/CMM] (12/07/16 8:45 AM) Monocytes # [0.0-0.8 0.6 K/CMM K/CMM] (12/07/16 8:45 AM) Eosinophils # 0.4 K/CMM [0.0-0.5 K/CMM] (12/07/16 8:45 AM) Basophils # [0.0-0.2 0.1 K/CMM K/CMM] (12/07/16 8:45 AM) Immunizations Given and Recorded Vaccine Date Status Refusal Reason pneumococcal 23-valent vaccine 12/10/16 Given Procedures Procedure Date Related Diagnosis Body Site Incision AND drainage Operative procedure on foot Procedure on back Tonsillectomy Social History Social History Type Response Alcohol Past Smoking Status Former smoker; Type: Cigarettes; Number of years: 30; Stopped at age: 43; Exposure to Tobacco Smoke None; Cigarette Smoking Last 365 Days No; Reg Smoking Cessation Counseling No Assessment and Plan Extracted from: Title: POD#1 Author: Boyd Cano Date: 12/10/16 POD#1 [...]
--- OUTSIDE RECORDS SUMMARY | 2018-10-29 05:51 | XMS REPORT | Clinical Summary ---
Author Author [facility] Organization [facility] Address Unknown Phone Unavailable Care Team Providers Care Student Education Specialist Name Role Phone Souleymane Santiago MD PCP Allergies Not on File Medications Not on file Active Problems Not on file Encounters Care Team Description Date Type Specialty Souleymane Santiago MD Abnormal mammogram (Primary Dx) 10/23/2018 Transcribe Access Orders Souleymane Santiago MD Screening breast examination 10/17/2018 Procedure visit Radiology Souleymane Santiago MD Screening breast examination (Primary Dx); Preop examination 10/11/2018 Transcribe Access Orders after 10/28/2017 Social History Date Tobacco Use Types Packs/Day Years Used Never Assessed Sex Assigned at Date Recorded Not on file Industry Job Start Date Occupation Not on file Not on file Not on file Travel End Travel History Travel Start No recent travel history available. Last Filed Vital Signs Not on file Plan of Treatment Health Maintenance Due Date Last Done Comments COLONOSCOPY SCREENING 2004 SHINGLES VACCINES (#1) 2004 INFLUENZA VACCINE 11/01/2018 BREAST CANCER SCREENING 10/23/2020 10/23/2018, 10/17/2018 Procedures Comments Procedure Name Priority Date/Time Associated Diagnosis MAMMO BREAST SCREEN Routine 10/17/2018 Screening breast TOMOSYNTHESIS BILATERAL 1:30 PM CDT examination XR CHEST 2 VW Routine 10/11/2018 Preop examination 1:47 PM CDT after 10/28/2017 Results * Mammo Breast Screen Tomosynthesis Bilateral (10/17/2018 1:30 PM CDT) Specimen Narrative Performed At PROCEDURE: MAMMO BREAST SCREEN TOMOSYNTHESIS BILATERAL [facility] Computer aided detection was utilized for the interpretation of the digital bilateral screening mammography with tomosynthesis. COMPARISON: There is no prior studies available for comparison. DENSITY: There are scattered areas of fibroglandular density. There is a focal asymmetry in the left breast at 2:00/3:00 position middle depth. There is no evidence of other suspicious irregular masses, architectural distortions or grouped calcifications. IMPRESSION:Focal asymmetry in the left breast. RECOMMENDATION: In the absence of prior studies, spot compression views with 3-D images in anticipation of possible target left breast ultrasound is recommended. BI-RADS 0: Incomplete-need additional imagings. This facility is accredited by the [employer] for Mammography. A negative x-ray report should not delay biopsy if a dominant or clinically suspicious mass is present.Not all cancers are identified by x-ray. [id number] Performing Organization Address [facility]/Zipcode Phone Number [facility] [address] [place] [address] * XR Chest 2 Vw (10/11/2018 1:47 PM CDT) Specimen Narrative Performed At EXAMINATION:XR CHEST 2 VW [facility] CLINICAL HISTORY:Z01.818 Encounter for other preprocedural examination, Z01.818 COMPARISON: None . IMPRESSION: Cardiomediastinal silhouette and pulmonary vasculature are within normal limits. Lungs are clear. No pleural effusion or pneumothorax. Bones are unremarkable. [id number] Procedure Note Hm Interface, Radiology Results Incoming - 10/11/2018 1:58 PM CDT EXAMINATION: XR CHEST 2 VW CLINICAL HISTORY: Z01.818 Encounter for other preprocedural examination, Z01.818 COMPARISON: None . IMPRESSION: Cardiomediastinal silhouette and pulmonary vasculature are within normal limits. Lungs are clear. No pleural effusion or pneumothorax. Bones are unremarkable. [id number] Performing Organization Address City/[facility] Phone Number [facility] [address] [place] [address] after 10/28/2017 Insurance Type Payer Benefit Subscriber ID Effective Phone Address Plan / Dates Group PPO BCBS BCBS xxxxxxxxxxxx [id number] CHOICE resent PPO/ELIZABETH CESPEDES PPO
[2018-10-29] MEDS ORDERED: CELECOXIB 200 MG CAP ONE (05:53)
[2018-10-29] MEDS ORDERED: DEXAMETHASONE SOD PHOS 10 MG/1 ML VIAL ONE (05:53)
[2018-10-29] MEDS ORDERED: GABAPENTIN 300 MG CAP ONE (05:53)
[2018-10-29] MEDS ORDERED: CEFAZOLIN SOD 1 GM/NS 50ML 100 ML IV ONE (05:55)
[2018-10-29] MEDS ORDERED: TRANEXAMIC ACID 1,000 MG/10 ML ML ONE (06:24)
[2018-10-29] MEDS ORDERED: BACITRACIN 50,000 UNIT VIAL ONE (06:24)
[2018-10-29] MEDS ORDERED: SODIUM CHLORIDE 0.9% 500ML 500 ML ONE (06:24)
[2018-10-29] MEDS ORDERED: VANCOMYCIN HCL 1,000 MG ONE (06:24)
[2018-10-29] MEDS ORDERED: BUPIVACAINE 7.5MG/ML /DEXTROSE 82.5MG/ML 2 ML AMP INJ ONE (06:54)
[2018-10-29] MEDS ORDERED: BUPIVACAINE HCL 0.5% 10ML MPF VIAL INJ ONE (07:21)
[2018-10-29] MEDS ORDERED: ROPIVACAINE 246.25 MG, EPINEPHRINE HCL 1:1000 1ML 0.5 MG, CLONIDINE HCL 0.08 MG, KETORO... INJ ONE ×5 (07:30)
[2018-10-29] MEDS ORDERED: FENTANYL CITRATE/PF 100MCG/2 ML INJ ONE ×2 (09:36→18:32)
[2018-10-29] MEDS ORDERED: PROMETHAZINE HCL (IM) 25 MG/ML VIAL INJ PRN (10:30)
[2018-10-29] MEDS ORDERED: ZOLPIDEM TARTRATE 5 MG TAB PO PRN (10:30)
[2018-10-29] MEDS ORDERED: ONDANSETRON HCL INJ 2MG/ML 2ML 2 MG/ML VIAL IV PRN (10:30)
[2018-10-29] MEDS ORDERED: DIPHENHYDRAMINE HCL INJ 50 MG/ML VIAL IM/IV PRN (10:30)
[2018-10-29] MEDS ORDERED: HYDROCODONE/APAP 5MG-325MG TAB PO PRN (10:30)
[2018-10-29] MEDS ORDERED: DOCUSATE SODIUM 100 MG CAP PO PRN (10:30)
[2018-10-29] MEDS ORDERED: ACETAMINOPHEN 650 MG SUPP PR PRN (10:30)
--- OUTSIDE RECORDS SUMMARY | 2018-10-29 10:32 | XMS REPORT | Clinical Summary ---
Author Author [facility] Organization [facility] Address Unknown Phone Unavailable Care Team Providers Care Trial Mgr Name Role Phone Souleymane Santiago MD PCP [...] imagings. This facility is accredited by the [employer] for Mammography. A negative x-ray report should not delay biopsy if a dominant or clinically suspicious mass is present.Not all cancers are identified by x-ray. [id number] Performing Organization Address [facility]/Zipcode Phone Number [facility] [phone] [place] [address] * XR Chest 2 Vw (10/11/2018 1:47 PM CDT) Specimen Narrative Performed At EXAMINATION:XR CHEST 2 VW [facility] CLINICAL HISTORY:Z01.818 Encounter for other preprocedural examination, Z01.818 COMPARISON: None . IMPRESSION: Cardiomediastinal silhouette and pulmonary vasculature are within normal limits. Lungs are clear. No pleural effusion or pneumothorax. Bones are unremarkable. [id number] Procedure Note Hm Interface, Radiology Results Incoming - 10/11/2018 1:58 PM CDT EXAMINATION: XR CHEST 2 VW CLINICAL HISTORY: Z01.818 Encounter for other preprocedural examination, Z01.818 COMPARISON: None . IMPRESSION: Cardiomediastinal silhouette and pulmonary vasculature are within normal limits. Lungs are clear. No pleural effusion or pneumothorax. Bones are unremarkable. [id number] Performing Organization Address City/[facility]ode Phone Number [facility] [address] [place] [address] after 10/28/2017 Insurance Type Payer Benefit Subscriber ID Effective Phone Address Plan / Dates Group PPO BCBS BCBS xxxxxxxxxxxx 2017-P CHOICE resent PPO/ELIZABETH CESPEDES PPO
--- OUTSIDE RECORDS SUMMARY | 2018-10-29 10:32 | XMS REPORT | Continuity of Care Document ---
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 Name Role Phone [facility] [employer] Information [employer] Unavailable Unavailable Problems Problem Status Onset Date Classification Date Reported Comments Source LUMBAR STENOSIS, SPONDYLOSIS, DISC DEGEN Active 11/17/2016 [facility] COPD (Confirmed) Active Problem 12/13/2016 [facility] Goiter Active Problem 12/13/2016 [facility] Hypertension Active Problem 12/13/2016 [facility] Seizures Active Problem 12/13/2016 [facility] Lumbar stenosis Active Problem 12/13/2016 [facility] Medications Medication Details Route Status Patient Instructions Ordering Provider Order Date Source tizanidine 4 mg oral capsule 4 mg=1 cap, PO, Q8H, PRN for muscle spasms, # 90 cap, 0 Refill(s), Pharmacy: [facility]/pharmacy #[id number] Active 12/10/2016 [facility] clindamycin 150 mg oral capsule 150 mg=1 cap, PO, Q6H, X 5 day, # 20 cap, 0 Refill(s), Pharmacy: [facility]/pharmacy #[id number] Active 12/10/2016 [facility] {21 (Methylprednisolone 4 MG Oral Tablet [Medrol]) } Pack [Medrol Dosepak] See Instructions, PO, Take by mouth as directed on label., # 1 Pack, 0 Refill(s), Pharmacy: [facility]/pharmacy #[id number] Active 12/10/2016 [facility] Acetaminophen 325 MG / Hydrocodone Bitartrate 10 MG Oral Tablet [Tyler 10/325] 1 tab, PO, Q4H, PRN for pain, X 4 day, # 24 tab, 0 Refill(s) Active 12/10/2016 [facility] Protonix 40 mg, Route: IVP, Drug form: INJ, Daily, Dosing Weight 78.636, kg, Start date: 12/10/16 9:00:00 CDT, Duration: 30 day, Stop date: 01/08/17 9:00:00 CDTNotes: For IV push reconstitute with 10 ml 0.9% sodium chloride and push over 2 minutes. (Same as: Protonix) Inactive 12/10/2016 [facility] pneumococcal capsular polysaccharide type 1 vaccine / pneumococcal capsular polysaccharide type 10A vaccine / pneumococcal capsular polysaccharide type 11A vaccine / pneumococcal capsular polysaccharide type 12F vaccine / pneumococcal capsular polysacchar 0.5 mL, Route: IM, Drug Form: INJ, Daily, Start date: 12/10/16 9:00:00 CDT, Stop date: 12/10/16 23:59:00 CDTNotes: (Same as: Pneumovax 23) Inactive 12/10/2016 [facility] Dilantin 500 mg, 5 cap, Route: PO, Drug form: ERCAP, Bedtime, Dosing Weight 78.636, kg, Start date: 12/09/16 21:00:00 CDT, Duration: 30 day, Stop date: 01/07/17 21:00:00 CDTNotes: (Same as: Dilantin) Do not open, crush, or chew. No Longer Active 12/10/2016 [facility] Dexamethasone 4 mg, 1 mL, Route: IVP, Drug form: INJ, Q12H, Dosing Weight 78.636, kg, Start date: 12/09/16 21:00:00 CDT, Duration: 30 day, Stop date: 01/08/17 9:00:00 CDTNotes: Concentration: 4mg/ml No Longer Active 12/10/2016 [facility] Cefazolin 2 gm, Route: IVPB, ABXQ8H, Dosing Weight 78.636, kg, Start date: 12/09/16 18:30:00 CDT, Duration: 24 hr, Stop date: 12/10/16 10:30:00 CDT, ABX Indication: Surgical ProphylaxisNotes: (Same As: Jayden Byrd zol) MEDICATION WASTE Product Size: 1000 mg Product Wasted: ___ mg No Longer Active 12/09/2016 [facility] Docusate Sodium 100 MG Oral Capsule [Colace] 100 mg, 1 cap, Route: PO, Drug form: CAP, BID, Dosing Weight 78.636, kg, Start date: 12/09/16 17:00:00 CDT, Duration: 30 day, Stop date: 01/08/17 9:00:00 CDTNotes: (Same as: Colace) (Do Not Crush) No Longer Active 12/09/2016 [facility] Benzocaine 15 MG / Menthol 3.6 MG Lozenge [Cepacol Sore Throat Pain Relief 15/3.6] 1 lozenge, Route: MUCOUS MEM, Drug Form: LANEY, Dosing Weight 78.636, kg, Q2H, PRN Sore Throat, Start date: 12/09/16 15:34:00 CDT, Stop date: 01/08/17 15:33:00 CDTNotes: Cepacol lozenges (Same As: Cepacol Lozenges) Inactive 12/09/2016 [facility] acetaminophen (ANES) Route: IV, Drug form: INJ, ONCE, Stop date: 12/09/16 12:21:00 CDT Inactive 12/09/2016 [facility] vasopressin (ANES) Route: IV, Drug form: INJ, ONCE, Stop date: 12/09/16 12:21:00 CDT Inactive 12/09/2016 [facility] neostigmine (ANES) Route: IV, Drug form: INJ, ONCE, Stop date: 12/09/16 12:21:00 CDT Inactive 12/09/2016 [facility] ondansetron (ANES) Route: IV, Drug form: INJ, ONCE, Stop date: 12/09/16 12:21:00 CDT Inactive 12/09/2016 [facility] glycopyrrolate (ANES) Route: IV, Drug form: INJ, ONCE, Stop date: 12/09/16 12:21:00 CDT Inactive 12/09/2016 [facility] ketOROLAC 30 mg/mL injectable solution 15 mg, 1 mL, Route: IV, Drug form: INJ, Q6H, Dosing Weight 78.636, kg, Start date: 12/09/16 12:00:00 CDT, Duration: 1 day, Stop date: 12/10/16 6:00:00 CDTNotes: (Same as:Toradol) IV bolus must be given >15 seconds. Give IM administration slowly and deeply into the muscle. Not for use > 4 days. No Longer Active 12/09/2016 [facility] Ofirmev 1,000 mg, 100 mL, Route: IV, Drug form: INJ, Q6H, Dosing Weight 78.636, kg, for > or=50 kg, Start date: 12/09/16 12:00:00 CDT, Duration: 2 doses or times, Stop date: 12/09/16 18:00:00 CDTNotes: Infuse over 15 minutes Do not exceed 4gm/day of acetaminophen MEDICATION WASTE Product Size: 1000 mg Product Wasted: ___ mg Inactive 12/09/2016 [facility] ceFAZolin (ANES) Route: IV, Drug form: INJ, ONCE, Stop date: 12/09/16 11:05:00 CDT Inactive 12/09/2016 [facility] 120 ACTUAT Albuterol 0.1 MG/ACTUAT / Ipratropium [place] 0.02 MG/ACTUAT Metered Dose Inhaler [Combivent 20/100] 1 puff, Route: INHALER, Drug Form: AERO, Dosing Weight 78.636, kg, RQID, Start date: 12/09/16 11:00:00 CDT, Duration: 30 day, Stop date: 01/08/17 7:00:00 CDTNotes: Same as: Combivent Respimat WASTE: Aerosol - Return to Pharmacy No Longer Active 12/09/2016 [facility] fentaNYL (ANES) Route: IV, Drug form: INJ, ONCE, Stop date: 12/09/16 10:55:00 CDT Inactive 12/09/2016 [facility] ketAMINE (ANES) Route: IV, Drug form: INJ, ONCE, Stop date: 12/09/16 10:55:00 CDT Inactive 12/09/2016 [facility] propofol (ANES) Route: IV, Drug form: INJ, ONCE, Stop date: 12/09/16 10:55:00 CDT Inactive 12/09/2016 [facility] rocuronium (ANES) Route: IV, Drug form: INJ, ONCE, Stop date: 12/09/16 10:55:00 CDT Inactive 12/09/2016 [facility] ePHEDrine (ANES) Route: IV, Drug form: INJ, ONCE, Stop date: 12/09/16 10:55:00 CDT Inactive 12/09/2016 [facility] lidocaine (ANES) Route: IV, Drug form: INJ, ONCE, Stop date: 12/09/16 10:55:00 CDT Inactive 12/09/2016 [facility] Zofran 4 mg, 2 mL, Route: IV, Drug form: INJ, Q8H, Dosing Weight 78.636, kg, PRN Nausea, Start date: 12/09/16 10:25:00 CDT, Duration: 30 day, Stop date: 01/08/17 10:24:00 CDTNotes: (Same as: Zofran) MEDICATION WASTE Product Size: 4 mg Product Wasted: ___ mg No Longer Active 12/09/2016 [facility] Acetaminophen 325 MG / Hydrocodone Bitartrate 10 MG Oral Tablet [Tyler 10/325] 1 tab, Route: PO, Drug Form: TAB, Dosing Weight 78.636, kg, Q4H, PRN Pain Score 1-3, Start date: 12/09/16 10:24:00 CDT, Duration: 30 day, Stop date: 01/08/17 10:23:00 CDTNotes: Do not exceed 4gm/day of acetaminophen. (Same as: Tyler 325/10) No Longer Active 12/09/2016 [facility] Morphine 2 mg, 0.5 mL, Route: IVP, Drug form: SOLN, Q4H, Dosing Weight 78.636, kg, PRN Pain Score 4-6, Start date: 12/09/16 10:24:00 CDT, Stop date: 01/08/17 10:23:00 CDTNotes: (Same as:MORPhine Sulfate) No Longer Active 12/09/2016 [facility] Melatonin 3 mg, 1 tab, Route: PO, Drug form: TAB, Bedtime, Dosing Weight 78.636, kg, PRN as needed for insomnia, Start date: 12/09/16 10:24:00 CDT, Duration: 30 day, Stop date: 01/08/17 10:23:00 CDT, ..Notes: (Same as: Melatonin) No Longer Active 12/09/2016 [facility] Diphenhydramine 25 mg, 1 cap, Route: PO, Drug form: CAP, TID, Dosing Weight 78.636, kg, PRN Itching, Start date: 12/09/16 10:24:00 CDT, Duration: 30 day, Stop date: 01/08/17 10:23:00 CDTNotes: (Same as: Benadryl) No Longer Active 12/09/2016 [facility] tizanidine 4 mg, 1 tab, Route: PO, Drug form: TAB, Q8H, Dosing Weight 78.636, kg, PRN as needed for muscle spasm, Start date: 12/09/16 10:24:00 CDT, Duration: 30 day, Stop date: 01/08/17 10:23:00 CDTNotes: (Same As: Zanaflex) No Longer Active 12/09/2016 [facility] sennosides, [facility] 8.6 mg, 1 tab, Route: PO, Drug Form: TAB, Dosing Weight 78.636, kg, Daily, PRN Constipation, Start date: 12/09/16 10:24:00 CDT, Duration: 30 day, Stop date: 01/08/17 10:23:00 CDTNotes: (Same as: Senokot) No Longer Active 12/09/2016 [facility] Phenergan 12.5 mg, 0.5 mL, Route: IVPB, Drug form: INJ, Q4H, Dosing Weight 78.636, kg, PRN Nausea & Vomiting, Start date: 12/09/16 10:24:00 CDT, Duration: 30 day, Stop date: 01/08/17 10:23:00 CDTNotes: Do not give IV push. (Same as: Phenergan) No Longer Active 12/09/2016 [facility] sodium chloride 0.9% 1000 ml INJ 1,000 mL 1,000 mL, Rate: 65 ml/hr, Infuse over: 15.4 hr, Route: IV, Dosing Weight 78.636 kg, Total Volume: 1,000, Start date: 12/09/16 10:24:00 CDT, Duration: 30 day, Stop date: 01/08/17 10:23:00 CDT No Longer Active 12/09/2016 [facility] cyclobenzaprine 10 mg, 1 tab, Route: PO, Drug form: TAB, TID, Dosing Weight 78.636, kg, PRN Spasm, Start date: 12/09/16 10:23:00 CDT, Duration: 30 day, Stop date: 01/08/17 10:22:00 CDTNotes: (Same As: Flexeril) No Longer Active 12/09/2016 [facility] Benzocaine 15 MG / Menthol 3.6 MG Lozenge [Cepacol Sore Throat Pain Relief 15/3.6] 1 lozenge, Route: PO, Drug Form: LANEY, Dosing Weight 78.636, kg, Q2H, PRN as needed for sore throat, Start date: 12/09/16 10:23:00 CDT, Duration: 30 day, Stop date: 01/08/17 10:22:00 CDTNotes: Cepacol lozenges Dispense 1 box=16 lozenges (Same As: Cepacol Lozenges) No Longer Active 12/09/2016 [facility] Ambien 10 mg, 2 tab, Route: PO, Drug form: TAB, Bedtime, Dosing Weight 78.636, kg, PRN Insomnia, Start date: 12/09/16 10:23:00 CDT, Duration: 30 day, Stop date: 01/08/17 10:22:00 CDTNotes: (Same As: Ambien) No Longer Active 12/09/2016 [facility] midazolam (ANES) Route: IV, Drug form: SOLN, ONCE, Stop date: 12/09/16 10:20:00 CDT Inactive 12/09/2016 [facility] Ondansetron 4 mg, 2 mL, Route: IVP, Drug form: INJ, ONCE, Dosing Weight 78.636, kg, PRN Nausea & Vomiting, Start date: 12/09/16 10:05:00 CDTNotes: (Same as: Zofran) MEDICATION WASTE Product Size: 4 mg Product Wasted: ___ mg Inactive 12/09/2016 [facility] Labetalol 10 mg, 2 mL, Route: IVP, Drug form: INJ, Q5Min, Dosing Weight 78.636, kg, PRN Elevated BP, Start date: 12/09/16 10:05:00 CDT, Duration: 5 doses or times, Stop date: 12/10/16 0:00:00 CDT Inactive 12/09/2016 [facility] Hydralazine 10 mg, 0.5 mL, Route: IVP, Drug form: INJ, Q20Min, Dosing Weight 78.636, kg, PRN Elevated BP, Start date: 12/09/16 10:05:00 CDT, Duration: 2 doses or times, Stop date: 12/10/16 0:00:00 CDTNotes: (Same as: Apresoline) Push over 5 minutes Inactive 12/09/2016 [facility] Hydromorphone 0.5 mg, 0.25 mL, Route: IVP, Drug form: INJ, Q5Min, Dosing Weight 78.636, kg, PRN Pain Score 7-10, Start date: 12/09/16 10:05:00 CDT, Duration: 4 doses or times, Stop date: 12/10/16 0:00:00 CDTNotes: Same as: Dilaudid Inactive 12/09/2016 [facility] Oxycodone 5 mg, 1 tab, Route: PO, Drug form: TAB, Q4H, Dosing Weight 78.636, kg, PRN Pain Score 7-10, Start date: 12/09/16 10:05:00 CDT, Duration: 30 day, Stop date: 01/08/17 10:04:00 CDTNotes: (Same as: Roxic odone) Inactive 12/09/2016 [facility] Flumazenil 0.2 mg, 2 mL, Route: IVP, Drug form: INJ, PRN, Dosing Weight 78.636, kg, PRN Benzodiazepine Reversal, Initial dose, Start date: 12/09/16 10:05:00 CDT, Duration: 30 day, Stop date: 01/08/17 10:04:00 C DTNotes: (Same as: Romazicon) Inactive 12/09/2016 [facility] Naloxone 0.4 mg, 1 mL, Route: IVP, Drug form: INJ, Q2MIN, Dosing Weight 78.636, kg, PRN Narcotic Reversal, Start date: 12/09/16 10:05:00 CDT, Duration: 8 doses or times, Stop date: 12/10/16 0:00:00 CDTNotes: Same as Narcan Inactive 12/09/2016 [facility] LR 1000 mL INJ (ANES) Route: IV, Total Volume: 1,000, Start date: 12/09/16 9:45:00 CDT, Stop date: 12/09/16 10:45:00 CDT Inactive 12/09/2016 [facility] gabapentin 300 MG Oral Capsule 300 mg, 1 cap, Route: PO, Drug form: CAP, ONCE, Dosing Weight 78.636, kg, Priority: NOW, Start date: 12/09/16 9:09:00 CDT, Stop date: 12/09/16 9:09:00 CDT Inactive 12/09/2016 [facility] Amlodipine 5 mg, 1 tab, Route: PO, Drug form: TAB, Daily, Dosing Weight 78.636, kg, Start date: 12/09/16 9:00:00 CDT, Duration: 30 day, Stop date: 01/07/17 9:00:00 CDTNotes: (Same as: Norvasc) No Longer Active 12/09/2016 [facility] Alprazolam 0.25 mg, PO, PRN Active 12/07/2016 [facility] Triamcinolone Acetonide in Absorbase 1 appl, TOP Active 12/07/2016 [facility] Hydroxyzine 25 mg, PO, QID Active 12/07/2016 [facility] Acetaminophen 325 MG / Hydrocodone Bitartrate 5 MG Oral Tablet 1 tab, PO, PRN No Longer Active 12/07/2016 [facility] Dilantin 500 mg, PO, Bedtime Active 12/07/2016 [facility] Allergies, Adverse Reactions, Alerts No Known Medication Allergies Immunizations Immunization Date Given Site Status Last Updated Comments Source pneumococcal 23-valent vaccine 12/10/2016 Left Deltoid completed [employer] Results Order Name Results Value Reference Range Date Interpretation Comments Source ELECTROLYTES AGAP 6.6 10.0 - 20.0 12/07/2016 [facility] ELECTROLYTES eGFR 102 12/07/2016 Result Comment: The [...] should be multiplied by the estimated BMI. [facility] ELECTROLYTES Chloride Lvl 105 95 - 109 12/07/2016 [facility] ELECTROLYTES Potassium Lvl 4.6 3.5 - 5.1 12/07/2016 [facility] ELECTROLYTES CO2 32 24 - 32 12/07/2016 [facility] ELECTROLYTES Calcium Lvl 8.9 8.5 - 10.5 12/07/2016 [facility] ELECTROLYTES Glucose Lvl 74 70 - 99 12/07/2016 [facility] ELECTROLYTES Sodium Lvl 139 135 - 145 12/07/2016 [facility] ELECTROLYTES Creatinine Lvl 0.54 0.50 - 1.40 12/07/2016 [facility] ELECTROLYTES BUN 11 7 - 22 12/07/2016 [facility] HEMATOLOGY Basophils 0.7 0.0 - 1.0 12/07/2016 [facility] HEMATOLOGY Eosinophils 5.1 0.0 - 4.0 12/07/2016 [facility] HEMATOLOGY Segs-Bands # 4.0 1.5 - 8.1 12/07/2016 [facility] HEMATOLOGY Basophils # 0.1 0.0 - 0.2 12/07/2016 [facility] HEMATOLOGY Monocytes # 0.6 0.0 - 0.8 12/07/2016 [facility] HEMATOLOGY Lymphocytes # 2.4 1.0 - 5.5 12/07/2016 [facility] HEMATOLOGY Eosinophils # 0.4 0.0 - 0.5 12/07/2016 [facility] HEMATOLOGY Segs 53.7 45.0 - 75.0 12/07/2016 [facility] HEMATOLOGY Lymphocytes 32.6 20.0 - 40.0 12/07/2016 [facility] HEMATOLOGY Monocytes 7.9 2.0 - 12.0 12/07/2016 [facility] HEMATOLOGY WBC 7.4 3.7 - 10.4 12/07/2016 [facility] HEMATOLOGY Hct 39.6 36.0 - 48.0 12/07/2016 [facility] HEMATOLOGY MCV 90.3 80.0 - 98.0 12/07/2016 [facility] HEMATOLOGY MCHC 33.3 32.0 - 36.0 12/07/2016 [facility] HEMATOLOGY RDW 13.4 11.5 - 14.5 12/07/2016 [facility] HEMATOLOGY MCH 30.0 27.0 - 31.0 12/07/2016 [facility] HEMATOLOGY Hgb 13.2 12.0 - 16.0 12/07/2016 [facility] HEMATOLOGY RBC 4.38 4.20 - 5.40 12/07/2016 [facility] HEMATOLOGY MPV 7.5 7.4 - 10.4 12/07/2016 [facility] HEMATOLOGY Platelet 265 133 - 450 12/07/2016 [facility] Pathology Reports No Data Provided for This Section Diagnostic Reports No Data Provided for This Section Consultation Notes No Data Provided for This Section Discharge Summaries No Data Provided for This Section History and Physicals No Data Provided for This Section Vital Signs Vital Sign Value Date Comments Source Systolic (mm Hg) 129 12/10/2016 [facility] Diastolic (mm Hg) 79 12/10/2016 [facility] Heart Rate 80 12/10/2016 [facility] Respitory Rate 18 12/10/2016 [facility] Systolic (mm Hg) 110 12/10/2016 [facility] Diastolic (mm Hg) 69 12/10/2016 [facility] Respitory Rate 18 12/10/2016 [facility] Temperature Oral (F) 97.4 F 12/10/2016 [facility] Heart Rate 79 12/10/2016 [facility] Systolic (mm Hg) 109 12/10/2016 [facility] Diastolic (mm Hg) 57 12/10/2016 [facility] Temperature Oral (F) 98.1 F 12/10/2016 [facility] Heart Rate 80 12/10/2016 [facility] Respitory Rate 16 12/10/2016 [facility] Temperature Oral (F) 97.6 F 12/10/2016 [facility] Weight 78.636 12/09/2016 [facility] BMI Calculated 28.85 12/09/2016 [facility] Height 165.1 cm 12/09/2016 [facility] Weight 78.636 12/07/2016 [facility] BMI Calculated 28.85 12/07/2016 [facility] Height 165.1 cm 12/07/2016 [facility] Encounters Location Location Details Encounter Type Encounter Number Reason For Visit Attending Provider ADM Date DC Date Status Source [facility] Bedded Outpatient [id number] Steve Tam 12/09/2016 12/10/2016 [facility] Procedures Procedure Code Date Perfomer Comments Source Incision AND drainage [id number] [facility] Operative procedure on foot [id number] [facility] Procedure on back [id number] [facility] Tonsillectomy [id number] [facility] Assessment and Plan Assessment and Plan Date [...] RXs given D/W Tam Cano PA-C 12/10/2016 [facility] Plan of Care No Data Provided for This Section Social History Social History Date Source Social History TypeResponse Alcohol Past Smoking Status Former smoker; Type: Cigarettes; Number of years: 30; Stopped at age: 43; Exposure to Tobacco Smoke None; Cigarette Smoking Last 365 Days No; Reg Smoking Cessation Counseling No 12/07/2016 [facility] Family History No Data Provided for This Section Advance Directives No Data Provided for This Section Functional Status No Data Provided for This Section
--- NOTE | 2018-10-29 10:42 | NUR ---
Received patient via stretcher from PACU. Accompanied by . AAOX4 to time, person, place, situation. Respirations even and unlabored. Aquacel dressing to right hip clean, dry, and intact. Wedge between legs. Oriented patient to room. Instructed to use call light for assistance. Will continue to monitor.
--- NOTE | 2018-10-29 10:45 | Diagnostic Imaging Report ---
EXAMINATION: PELVIS AP 1-2 VIEWS INDICATION: Postoperative COMPARISON: None FINDINGS: Status post right total hip replacement in anatomic alignment. No acute fracture. Postoperative subcutaneous emphysema and surgical skin lilibeth in place. Diffuse osteopenia. Severe left hip degenerative changes with [id number] contact, subchondral sclerosis and osteophyte formation. Partially visualized degenerative changes of the lower lumbar spine. IMPRESSION: Anatomic alignment status post right total hip replacement. Signed by: Vincent Abrams MD on 10/29/2018 10:42 AM
--- NOTE | 2018-10-29 11:14 | Operative Report ---
DATE OF PROCEDURE: 10/29/2018 SURGEON: Steve Aaron MD [facility] SPECIALIST: Nic Mccallum, Certified PA. PREOPERATIVE DIAGNOSIS: Osteoarthritis of right hip. POSTOPERATIVE DIAGNOSIS: Osteoarthritis of right hip. PROCEDURE: Right total hip arthroplasty. INDICATIONS: The patient is a frail 62-year-old lady, who has severe arthritis of both hips. She is also status post four previous back surgeries. She has failed conservative management and would like to proceed with a right total hip replacement. The risks and benefits were explained. The likelihood of needing a left hip replacement in the future was explained. She states she understands and wishes to proceed. DESCRIPTION OF PROCEDURE: The patient was brought to the operating room, given a combination of spinal and general anesthetic. She received prophylactic antibiotics and tranexamic acid in the holding area. She was placed in the left lateral decubitus position. Her right hip was prepped and draped in a sterile manner. A preoperative time-out was performed. A posterior approach was made to the right hip. Care was taken to avoid injury to the sciatic nerve. Hemostasis was obtained with electrocautery. The posterior capsule and piriformis and short external rotators were released. These were severely contracted. The hip was dislocated and an oscillating saw was used to resect the femoral head. Severe arthritic changes were noted in the socket and the femoral head. Acetabular retractors were carefully placed. The true floor of the acetabulum was established with a 46 mm reamer. The socket was sequentially reamed up to 53 mm. This accomplished bleeding hemispherical cancellous bone. A [employer] 54 mm outer diameter OsseoTi socket was then impacted into place. Fixation was augmented with a single 25 mm cancellous screw placed into the ilium. A large anterior osteophyte was removed with a curved osteotome. A highly cross-linked polyethylene liner with a 36 mm inner diameter was then impacted into place. Care was taken to make sure that there was no evidence of soft tissue interposition. Throughout the case, the socket had been thoroughly irrigated on multiple occasions with a combination of pulsatile lavage and a spray mixture of vancomycin and diluted polymyxin. The socket was packed with a moist soaked lap sponge. Attention was directed towards the proximal femur. The [employer] Taperloc broaches were impacted. Ultimately, a size 11 stem had good canal fill and stability. Trial reductions were performed. A standard 36 mm head provided appropriate soft tissue balancing and stability. The leg was obviously going to be longer than the untreated left leg. The trial implants were then removed. The hip was further irrigated. The stem was impacted and seated for a final time. A standard 36 mm ceramic head was then seated onto the stem. Once it was clean and dry, a final reduction was performed. Once again, the hip was put through a full arc of motion and felt to be stable. The posterior capsule was repaired with #2 Ethibond. A 100 mL premixed pericapsular LUCAS injection was placed into the surrounding soft tissue. A 500 mg of vancomycin powder was placed into the wound. The tensor fascia and gluteal fascia were closed with interrupted #2 Ethibond. The skin was closed with subcuticular Vicryl and lilibeth. A sterile Aquacel bandage was applied. Estimated blood loss was 100 mL. All needle and sponge counts were correct. Steve Aaron MD DR/ADRIANE /[id number]
[2018-10-29] MEDS ORDERED: DULCOLAX STOOL100 MG PO (11:34)
[2018-10-29] MEDS: SODIUM CHLORIDE 0.9% 1000ML 1,000 ML IV SCH ×2 (11:45→19:56)
[2018-10-29] MEDS: HYDROCODONE/APAP 7.5MG-325MG 1 EA TAB PO PRN ×3 (11:45→23:26)
[2018-10-29] MEDS: ACETAMINOPHEN 1000 MG/100 ML IV SCH ×3 (12:34→23:26)
[2018-10-29] MEDS: CEFAZOLIN SOD 1 GM/NS 50ML 50 ML IV SCH ×2 (13:00→21:30)
[2018-10-29] MEDS: KETOROLAC TROMETHAMINE 30 MG/ML VIAL IV PRN ×2 (14:21→22:19)
[2018-10-29] MEDS ORDERED: PHENYTOIN SODIUM EXT REL 100 MG CAP PO SCH ×2 (15:30→21:00)
[2018-10-29] MEDS: ASPIRIN 325 MG TAB PO SCH (16:11)
[2018-10-29] MEDS: CELECOXIB 200 MG CAP PO SCH (16:11)
[2018-10-29] MEDS ORDERED: MIDAZOLAM HCL 2 MG/2 ML VIAL ONE (18:32)
--- NOTE | 2018-10-29 18:45 | NUR ---
Received bedside report from day shift RN. The patient is laying in bed, not in distress. The patient reported her pain 8/10 and has already received a pain medication. Patient was encourage to drink more fluid to elevate BP. Call light within reach, bed height low, wheels lock and side rails up x2.
[2018-10-29] MEDS ORDERED: EPHEDRINE SULFATE INJ 50 MG/10 ML SYR ONE (18:59)
[2018-10-29] MEDS ORDERED: PROPOFOL IV EMULSION 10 MG/ML 20 ML VIAL ONE (18:59)
[2018-10-29] MEDS ORDERED: SEVOFLURANE INHAL SOLN 250 ML PEN BTL ONE (18:59)
[2018-10-29] MEDS ORDERED: NEOSTIGMINE 5 MG/5ML SYR ONE (18:59)
[2018-10-29] MEDS ORDERED: ACETAMINOPHEN 1000 MG/100 ML IV ONE (18:59)
[2018-10-29] MEDS ORDERED: PHENYLEPHRINE HCL 1% 10 MG/ML VIAL ONE (18:59)
[2018-10-29] MEDS ORDERED: LIDOCAINE HCL 2% LOCAL INJ 5 ML SDV VIAL INJ ONE (18:59)
[2018-10-29] MEDS ORDERED: GLYCOPYRROLATE INJ 1MG/ 5 ML SYR ONE (18:59)
[2018-10-29] MEDS ORDERED: VASOPRESSIN INJ 20 UNIT/ML VIAL ONE (18:59)
[2018-10-29] MEDS ORDERED: ROCURONIUM BROMIDE 10 MG/ML 5ML VIAL ONE (18:59)
[2018-10-29] MEDS ORDERED: ONDANSETRON HCL INJ 2MG/ML 2ML 2 MG/ML VIAL ONE (18:59)
--- NOTE | 2018-10-29 19:10 | NUR ---
Report given to oncoming nurse of patient's status. Resting in bed. AAOX4 to time ,person, place. Respirations even and unlabored. Dressing to right hip clean, dry, and intact . Wedge in between legs. Side rails upx2, call light within reach.
[2018-10-29] MEDS: METHOCARBAMOL 750 MG TAB PO PRN (19:56)
[2018-10-29] MEDS ORDERED: HYDROCODONE/APAP 10MG-325MG TAB PO SCH (21:00)
[2018-10-30] MEDS: HYDROCODONE/APAP 7.5MG-325MG 1 EA TAB PO PRN ×3 (03:03→14:00)
[2018-10-30] MEDS: METHOCARBAMOL 750 MG TAB PO PRN (04:36)
[2018-10-30] MEDS: ACETAMINOPHEN 1000 MG/100 ML IV SCH (04:36)
[2018-10-30] MEDS: CEFAZOLIN SOD 1 GM/NS 50ML 50 ML IV SCH (04:36)
[2018-10-30 05:15] LABS: HEMATOCRIT 24.1 % (34.2-44.1); HEMOGLOBIN 7.9 g/dL (12.0-16.0)
[2018-10-30] MEDS: KETOROLAC TROMETHAMINE 30 MG/ML VIAL IV PRN ×2 (05:29→13:02)
--- NOTE | 2018-10-30 06:04 | Consultation ---
DATE OF CONSULTATION: REASON FOR CONSULTATION: Postop medical management. HISTORY OF PRESENT ILLNESS: The patient is a 62-year-old female, status post right hip arthroplasty for end-stage osteoarthritis. She is doing well postoperatively, but does have some minimal to moderate pain of the right hip area. PAST MEDICAL HISTORY: Significant for high blood pressure and seizure disorder. MEDICATIONS: See MAR. ALLERGIES: NONE. 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 Denies alcohol use. FAMILY HISTORY: Noncontributory at this time. PHYSICAL EXAMINATION: VITAL SIGNS: Temperature 97.2, pulse 81, blood pressure 108/49, sats 96% on room air. GENERAL: No apparent distress. NECK: Supple. CARDIOVASCULAR: Regular rate and rhythm. LUNGS: Clear to auscultation bilaterally. ABDOMEN: Good bowel sounds. Soft, nontender. EXTREMITIES: No clubbing or cyanosis. NEUROLOGIC: Nonfocal. ASSESSMENT/PLAN: 1. Right hip pain. Continue with postoperative care. 2. Hypertension. Continue to monitor since her blood pressure is minimal to a low, so we will hold her blood pressure medicines for today. 3. Seizure disorder. Continue with her Dilantin. 4. Anemia. Check a CBC. Please see hospital chart for full details. MD FRANCIS Becerril/ADRIANE /[id number]
[2018-10-30 07:25] VITALS: BP 99/50
[2018-10-30 08:16] VITALS: BP 99/50
[2018-10-30] MEDS: CELECOXIB 200 MG CAP PO SCH (08:19)
[2018-10-30] MEDS: ASPIRIN 325 MG TAB PO SCH (08:19)
[2018-10-30] MEDS ORDERED: DOCUSATE SODIUM 100 MG CAP PO SCH (09:00)
[2018-10-30] MEDS ORDERED: OLMESARTAN 20 MG TAB PO SCH (09:00)
[2018-10-30] MEDS ORDERED: SPIRONOLACTONE 25 MG TAB PO SCH (09:00)
[2018-10-30] MEDS ORDERED: ACETAMINOPHEN 1000 MG/100 ML IV PRN (10:30)
[2018-10-30] MEDS ORDERED: ASPIRIN81 MG PO (12:27)
--- NOTE | 2018-10-30 12:44 | NUR ---
PATIENT DME AND HOME HEALTH COMPANIES PRE-ARRANGED BY DR. CORLEY'S OFFICE. PATIENT WITH HOME HEALTH AND DME CONTACT INFORMATION. PATIENT AWARE TO CALL CM IF ANY PROBLEMS OCCUR WITHIN 3 DAYS POST- DISCHARGE. HOME HEALTH EXPLAINED IN DEPTH WITH SERVICES PROVIDED. PATIENT VERBALLY UNDERSTOOD. THE FOLLOWING HOME HEALTH AND DME COMPANY VERIFIED PATIENT IS ON SERVICE WITH THEM: [employer] : (WALKER WITH WHEELS, CPM, 3-IN-1 COMMODE) (P) [phone] (F) [phone] CM SPOKE TO [facility]. EQUIPMENT CONFIRMED DELIVERY BY [facility] AND PATIENT. [facility] (P) [phone] (F) [phone] [facility], LIAISON FOR [facility] CONFIRMED START DATE 11/[address] CORLEY. PATIENT AWARE. [facility] SAW PATIENT AT BEDSIDE AND GAVE CONTACT INFORMATION
--- NOTE | 2018-10-30 13:12 | NUR ---
Dr. Joyce aware Hgb 7.9. Patient cleared to discharge from 's standpoint.
--- NOTE | 2018-10-30 13:20 | NUR ---
Dressing to right hip changed as ordered. Barre well approximated. Scant bloody drainage noted.
--- NOTE | 2018-10-30 14:03 | NUR ---
Left hand IV discontinued. No signs of infiltration noted. 2x2 gauze and tape placed. Taken via wheelchair to personal car by PCT. Accompanied by . AAOX4 to time, person, place, situation. Respirations even and unlabored. Dressing to right hip clean, dry, and intact. Discharge instructions and all personal belongings taken with patient. Patient states "Dr. Aaron will be faxing rx to my pharmacy." Patient also states took home bedside commode yesterday. Also states she has walker at home.
--- NOTE | 2018-10-30 17:40 | NUR ---
Patient called stating " I went to my pharmacy and rx is not available. I tried calling 's answering service with no response." Paged
--- NOTE | 2018-10-30 17:49 | NUR ---
aware of patient's message. States " I sent rx to pharmacy provided to my office. She can call tomorrow morning to check which pharmacy they provided." Notified patient of doctor's message.
--- NOTE | 2018-10-30 17:59 | NUR ---
Patient's states " I wanted to update you Rx is now available at [facility]."
== END 2018-10-30 14:03 | disposition home health service (06) | DRG 470 ==
LOC: OR 05:13 → PACU V 10:18 → MED/SURG 10:43
PROVIDERS: ADMIT Specialist; ATTEND Specialist
PROC: 0SR904A Replacement of Right Hip Joint with Ceramic on Polyethylene Synthetic Substitute, Uncemented, Open Approach (ICD-10-PCS; principal; 2018-10-29 07:30)
DX: M16.11 Unilateral primary osteoarthritis, right hip (principal); I10 Essential (primary) hypertension; G40.909 Epilepsy, unspecified, not intractable, without status epilepticus; Z87.891 Personal history of nicotine dependence; Z79.82 Long term (current) use of aspirin
CPT/HCPCS: 36415; 72170; 85014; 85018; 86850; 86900; 86920; 93005; J0171; J0690; J1100; J1885; J2001; J2250; J2370; J2405; J2795; J3010; J3370; J7030; J7040

== ENCOUNTER 2018-12-11 06:02 | Inpatient (IN) | payer BC ==
[2018-12-10 11:01] LABS: BASOPHILS # (AUTO) 0.1 (0.0-0.1); BASOPHILS % 0.6 % (0.0-1.0); EOSINOPHILS # (AUTO) 0.2 (0.0-0.4); EOSINOPHILS % 1.6 % (0.0-6.0); HEMATOCRIT 33.8 % (34.2-44.1); HEMOGLOBIN 11.4 g/dL (12.0-16.0); LYMPHOCYTES # (AUTO) 1.7 (1.0-3.2); LYMPHOCYTES % 12.6 % (18.0-39.1); MEAN CORPUSCULAR HEMOGLOBIN 31.6 pg (28-32); MEAN CORPUSCULAR HGB CONC 33.7 g/dL (31-35); MEAN CORPUSCULAR VOLUME 93.6 fL (81-99); MONOCYTES # (AUTO) 0.9 (0.2-0.8); MONOCYTES % 6.8 % (4.4-11.3); NEUTROPHILS # (AUTO) 10.3 (2.1-6.9); NEUTROPHILS % 77.7 % (38.7-80.0); PLATELET COUNT 392 x10e3/uL (140-360); RED BLOOD COUNT 3.61 x10e6/uL (3.6-5.1); RED CELL DISTRIBUTION WIDTH 12.6 % (11.7-14.4)
[2018-12-10 11:31] LABS: ANION GAP 15.9 mmol/L (8-16); BLOOD UREA NITROGEN 13 mg/dL (7-26); BUN/CREATININE RATIO 19 (6-25); CALCIUM 10.1 mg/dL (8.4-10.2); CARBON DIOXIDE 28 mmol/L (22-29); CHLORIDE 89 mmol/L (98-107); CREATININE, SERUM 0.68 mg/dL (0.57-1.11); EST GLOMERULAR FILTRATION RATE > 60 ML/MIN (60-); GLUCOSE 83 mg/dL (74-118); POTASSIUM 3.9 mmol/L (3.5-5.1); SODIUM 129 mmol/L (136-145)
[~2018-12-11] VITALS: Ht 165.1 cm; Wt 81.2 kg
[~2018-12-11 06:02] MED LIST changes: +ASPIRIN81 MG PO; +DULCOLAX STOOL100 MG PO
--- OUTSIDE RECORDS SUMMARY | 2018-12-11 06:09 | XMS REPORT | Clinical Summary ---
Author Author [facility] Organization [facility] Address Unknown Phone Unavailable Care Team Providers Care Corporate Travel Consultant Name Role Phone Souleymane Santiago MD PCP Allergies Not on File Medications Not on file Active Problems Not on file Encounters Care Team Description Date Type Specialty Souleymaen Santiago MD Abnormal mammogram (Primary Dx) 10/23/2018 Transcribe Access Orders Souleymane Santiago MD Screening breast examination 10/17/2018 Procedure visit Radiology Souleymane Santiago MD Screening breast examination (Primary Dx); Preop examination 10/11/2018 Transcribe Access Orders after 12/10/2017 Social History Date Tobacco Use Types Packs/Day Years Used Never Assessed Sex Assigned at Date Recorded Not on file Industry Job Start Date Occupation Not on file Not on file Not on file Travel End Travel History Travel Start No recent travel history available. Last Filed Vital Signs Not on file Plan of Treatment Health Maintenance Due Date Last Done Comments CERVICAL CANCER SCREENING 12/13/1975 COLONOSCOPY SCREENING 2004 SHINGLES VACCINES (#1) 2004 INFLUENZA VACCINE 11/01/2018 BREAST CANCER SCREENING 12/06/2020 12/06/2018, 12/06/2018, 10/23/2018, Additional history exists Procedures Comments Procedure Name Priority Date/Time Associated Diagnosis US BREAST LEFT LIMITED Routine 12/06/2018 Abnormal mammogram 1:33 PM CDT MAMMO BREAST DIAGNOSTIC Routine 12/06/2018 Abnormal mammogram TOMOSYNTHESIS LEFT 1:16 PM CDT MAMMO BREAST SCREEN Routine 10/17/2018 Screening breast TOMOSYNTHESIS BILATERAL 1:30 PM CDT examination XR CHEST 2 VW Routine 10/11/2018 Preop examination 1:47 PM CDT after 12/10/2017 Results * US Breast Left Limited (12/06/2018 1:33 PM CDT) Specimen Narrative Performed At PROCEDURE: MAMMO BREAST DIAGNOSTIC TOMOSYNTHESIS LEFT, US BREAST LEFT LIMITED [facility] Computer aided detection with tomosynthesis was utilized for the interpretation. HISTORY:Patient is a 62-year-old female called back from screening mammogram due to a focal asymmetry in the left breast. COMPARISON: Recent mammogram dating 10/17/2018 Mammogram: There are scattered areas of fibroglandular density. Spot compression views for the focal asymmetry in the left upper outer quadrant does not show any suspicious masses, architectural distortions or grouped calcifications. There is a 0.6 cm stable oval circumscribed mass in the left breast at 10:00 position middle depth. Ultrasound: Targeted left breast ultrasound was performed for the left upper outer quadrant does not show any suspicious solid masses or fluid collections. The oval circumscribed mass in the left breast at 10:00 position about 7 cm from the nipple corresponds to a cluster of cysts measuring 0.6 x 0.2 x 0.5 cm. IMPRESSION:Benign findings. RECOMMENDATION: Correlation with physical exam and annual mammography. BI-RADS 2: Benign. This facility is accredited by [employer] for Mammography. A negative x-ray report should not delay biopsy if a dominant or clinically suspicious mass is present.Not all cancers are identified by x-ray. [id number] Performing Organization Address City/State/Zipcode Phone Number [facility] [address] [place] [address] * Mammo Breast Diagnostic Tomosynthesis Left (12/06/2018 1:16 PM CDT) Specimen Narrative Performed At PROCEDURE: MAMMO BREAST DIAGNOSTIC TOMOSYNTHESIS LEFT, US BREAST LEFT LIMITED [facility] Computer aided detection with tomosynthesis was utilized for the interpretation. HISTORY:Patient is a 62-year-old female called back from screening mammogram due to a focal asymmetry in the left breast. COMPARISON: Recent mammogram dating 10/17/2018 Mammogram: There are scattered areas of fibroglandular density. Spot compression views for the focal asymmetry in the left upper outer quadrant does not show any suspicious masses, architectural distortions or grouped calcifications. There is a 0.6 cm stable oval circumscribed mass in the left breast at 10:00 position middle depth. Ultrasound: Targeted left breast ultrasound was performed for the left upper outer quadrant does not show any suspicious solid masses or fluid collections. The oval circumscribed mass in the left breast at 10:00 position about 7 cm from the nipple corresponds to a cluster of cysts measuring 0.6 x 0.2 x 0.5 cm. IMPRESSION:Benign findings. RECOMMENDATION: Correlation with physical exam and annual mammography. BI-RADS 2: Benign. This facility is accredited by [employer] for Mammography. A negative x-ray report should not delay biopsy if a dominant or clinically suspicious mass is present.Not all cancers are identified by x-ray. [facility] Performing Organization Address [facility] Phone Number [facility] [address] [place] [address] * Mammo Breast Screen Tomosynthesis Bilateral (10/17/2018 1:30 PM CDT) Specimen Narrative Performed At PROCEDURE: MAMMO BREAST SCREEN TOMOSYNTHESIS BILATERAL [facility] Computer aided detection was utilized for the [...] imagings. This facility is accredited by the [employer] for Mammography. A negative x-ray report should not delay biopsy if a dominant or clinically suspicious mass is present.Not all cancers are identified by x-ray. [address] Organization Address [facility] Phone Number [facility] [address] [place] [address] * XR Chest 2 Vw (10/11/2018 1:47 PM CDT) Specimen Narrative Performed At EXAMINATION:XR CHEST 2 VW [facility] CLINICAL HISTORY:Z01.818 Encounter for other preprocedural examination, Z01.818 COMPARISON: None . IMPRESSION: Cardiomediastinal silhouette and pulmonary vasculature are within normal limits. Lungs are clear. No pleural effusion or pneumothorax. Bones are unremarkable. [id number] Procedure Note Hm Interface, Radiology Results Incoming - 10/11/2018 1:58 PM CDT EXAMINATION: XR CHEST 2 VW CLINICAL HISTORY: Z01.818 Encounter for other preprocedural examination, Z01.818 COMPARISON: None . IMPRESSION: Cardiomediastinal silhouette and pulmonary vasculature are within normal limits. Lungs are clear. No pleural effusion or pneumothorax. Bones are unremarkable. [id number] Performing Organization Address City/State/Zipcode Phone Number [facility] [address] [place] [address] after 12/10/2017 Insurance Type Payer Benefit Subscriber ID Effective Phone Address Plan / Dates Group PPO BCBS ANTHEM xxxxxxxxxxxx [id number] [facility] resent
--- OUTSIDE RECORDS SUMMARY | 2018-12-11 06:09 | XMS REPORT | Continuity of Care Document ---
Author Author [facility] Organization [facility] Address Unknown Phone Unavailable Care Team Providers Care Telephone Lineman Name Role Phone [facility] [employer] Unavailable Unavailable Problems Problem Status Onset Date Classification Date Reported Comments Source LUMBAR STENOSIS, SPONDYLOSIS, DISC DEGEN Active 11/17/2016 [facility] COPD (Confirmed) Active Problem 12/13/2016 [facility] Goiter Active Problem 12/13/2016 [facility] Hypertension Active Problem 12/13/2016 [facility] Seizures Active Problem 12/13/2016 [facility] Lumbar stenosis Active Problem 12/13/2016 [facility] Medications Medication Details Route Status Patient Instructions Ordering Provider Order Date Source tizanidine 4 mg oral capsule 4 mg=1 cap, PO, Q8H, PRN for muscle spasms, # 90 cap, 0 Refill(s), Pharmacy: [facility]/pharmacy #[id number] Active 12/10/2016 [facility] clindamycin 150 mg oral capsule 150 mg=1 cap, PO, Q6H, X 5 day, # 20 cap, 0 Refill(s), Pharmacy: [facility]/pharmacy #[id number] Active 12/10/2016 [facility] {21 (Methylprednisolone 4 MG Oral Tablet [Medrol]) } Pack [Medrol Dosepak] See Instructions, PO, Take by mouth as directed on label., # 1 Pack, 0 Refill(s), Pharmacy: [facility]/pharmacy #[id number] Active 12/10/2016 [facility] Acetaminophen 325 MG / Hydrocodone Bitartrate 10 MG Oral Tablet [[place] 10/325] 1 tab, PO, Q4H, PRN for pain, X 4 day, # 24 tab, 0 Refill(s) Active 12/10/2016 [facility] Protonix 40 mg, Route: IVP, Drug form: INJ, Daily, Dosing Weight 78.636, kg, Start date: 12/10/16 9:00:00 CDT, Duration: 30 day, Stop date: 01/08/17 9:00:00 CDTNotes: For IV push reconstitute with 10 ml 0.9% sodium chloride and push over 2 minutes. (Same as: Protonix) Inactive 12/10/2016 [facility] pneumococcal capsular polysaccharide type 1 vaccine / pneumococcal capsular polysaccharide type 10A vaccine / pneumococcal capsular polysaccharide type 11A vaccine / pneumococcal capsular polysaccharide type 12F vaccine / pneumococcal capsular polysacchar 0.5 mL, Route: IM, Drug Form: INJ, Daily, Start date: 12/10/16 9:00:00 CDT, Stop date: 12/10/16 23:59:00 CDTNotes: (Same as: Pneumovax 23) Inactive 12/10/2016 [facility] Dilantin 500 mg, 5 cap, Route: PO, Drug form: ERCAP, Bedtime, Dosing Weight 78.636, kg, Start date: 12/09/16 21:00:00 CDT, Duration: 30 day, Stop date: 01/07/17 21:00:00 CDTNotes: (Same as: Dilantin) Do not open, crush, or chew. No Longer Active 12/10/2016 [facility] Dexamethasone 4 mg, 1 mL, Route: IVP, Drug form: INJ, Q12H, Dosing Weight 78.636, kg, Start date: 12/09/16 21:00:00 CDT, Duration: 30 day, Stop date: 01/08/17 9:00:00 CDTNotes: Concentration: 4mg/ml No Longer Active 12/10/2016 [facility] Cefazolin 2 gm, Route: IVPB, ABXQ8H, Dosing Weight 78.636, kg, Start date: 12/09/16 18:30:00 CDT, Duration: 24 hr, Stop date: 12/10/16 10:30:00 CDT, ABX Indication: Surgical ProphylaxisNotes: (Same As: Jayden Byrd zol) MEDICATION WASTE Product Size: 1000 mg Product Wasted: ___ mg No Longer Active 12/09/2016 [facility] Docusate Sodium 100 MG Oral Capsule [Colace] 100 mg, 1 cap, Route: PO, Drug form: CAP, BID, Dosing Weight 78.636, kg, Start date: 12/09/16 17:00:00 CDT, Duration: 30 day, Stop date: 01/08/17 9:00:00 CDTNotes: (Same as: Colace) (Do Not Crush) No Longer Active 12/09/2016 [facility] Benzocaine 15 MG / Menthol 3.6 MG Lozenge [Cepacol Sore Throat Pain Relief 15/3.6] 1 lozenge, Route: MUCOUS MEM, Drug Form: LANEY, Dosing Weight 78.636, kg, Q2H, PRN Sore Throat, Start date: 12/09/16 15:34:00 CDT, Stop date: 01/08/17 15:33:00 CDTNotes: Cepacol lozenges (Same As: Cepacol Lozenges) Inactive 12/09/2016 [facility] acetaminophen (ANES) Route: IV, Drug form: INJ, ONCE, Stop date: 12/09/16 12:21:00 CDT Inactive 12/09/2016 [facility] vasopressin (ANES) Route: IV, Drug form: INJ, ONCE, Stop date: 12/09/16 12:21:00 CDT Inactive 12/09/2016 [facility] neostigmine (ANES) Route: IV, Drug form: INJ, ONCE, Stop date: 12/09/16 12:21:00 CDT Inactive 12/09/2016 [facility] ondansetron (ANES) Route: IV, Drug form: INJ, ONCE, Stop date: 12/09/16 12:21:00 CDT Inactive 12/09/2016 [facility] glycopyrrolate (ANES) Route: IV, Drug form: INJ, ONCE, Stop date: 12/09/16 12:21:00 CDT Inactive 12/09/2016 [facility] ketOROLAC 30 mg/mL injectable solution 15 mg, 1 mL, Route: IV, Drug form: INJ, Q6H, Dosing Weight 78.636, kg, Start date: 12/09/16 12:00:00 CDT, Duration: 1 day, Stop date: 12/10/16 6:00:00 CDTNotes: (Same as:Toradol) IV bolus must be given >15 seconds. Give IM administration slowly and deeply into the muscle. Not for use > 4 days. No Longer Active 12/09/2016 [facility] Ofirmev 1,000 mg, 100 mL, Route: IV, Drug form: INJ, Q6H, Dosing Weight 78.636, kg, for > or=50 kg, Start date: 12/09/16 12:00:00 CDT, Duration: 2 doses or times, Stop date: 12/09/16 18:00:00 CDTNotes: Infuse over 15 minutes Do not exceed 4gm/day of acetaminophen MEDICATION WASTE Product Size: 1000 mg Product Wasted: ___ mg Inactive 12/09/2016 [facility] ceFAZolin (ANES) Route: IV, Drug form: INJ, ONCE, Stop date: 12/09/16 11:05:00 CDT Inactive 12/09/2016 [facility] 120 ACTUAT Albuterol 0.1 MG/ACTUAT / Ipratropium [place] 0.02 MG/ACTUAT Metered Dose Inhaler [Combivent 20/100] 1 puff, Route: INHALER, Drug Form: AERO, Dosing Weight 78.636, kg, RQID, Start date: 12/09/16 11:00:00 CDT, Duration: 30 day, Stop date: 01/08/17 7:00:00 CDTNotes: Same as: Combivent Respimat WASTE: Aerosol - Return to Pharmacy No Longer Active 12/09/2016 [facility] fentaNYL (ANES) Route: IV, Drug form: INJ, ONCE, Stop date: 12/09/16 10:55:00 CDT Inactive 12/09/2016 [facility] ketAMINE (ANES) Route: IV, Drug form: INJ, ONCE, Stop date: 12/09/16 10:55:00 CDT Inactive 12/09/2016 [facility] propofol (ANES) Route: IV, Drug form: INJ, ONCE, Stop date: 12/09/16 10:55:00 CDT Inactive 12/09/2016 [facility] rocuronium (ANES) Route: IV, Drug form: INJ, ONCE, Stop date: 12/09/16 10:55:00 CDT Inactive 12/09/2016 [facility] ePHEDrine (ANES) Route: IV, Drug form: INJ, ONCE, Stop date: 12/09/16 10:55:00 CDT Inactive 12/09/2016 [facility] lidocaine (ANES) Route: IV, Drug form: INJ, ONCE, Stop date: 12/09/16 10:55:00 CDT Inactive 12/09/2016 [facility] Zofran 4 mg, 2 mL, Route: IV, Drug form: INJ, Q8H, Dosing Weight 78.636, kg, PRN Nausea, Start date: 12/09/16 10:25:00 CDT, Duration: 30 day, Stop date: 01/08/17 10:24:00 CDTNotes: (Same as: Zofran) MEDICATION WASTE Product Size: 4 mg Product Wasted: ___ mg No Longer Active 12/09/2016 [facility] Acetaminophen 325 MG / Hydrocodone Bitartrate 10 MG Oral Tablet [[place] 10/325] 1 tab, Route: PO, Drug Form: TAB, Dosing Weight 78.636, kg, Q4H, PRN Pain Score 1-3, Start date: 12/09/16 10:24:00 CDT, Duration: 30 day, Stop date: 01/08/17 10:23:00 CDTNotes: Do not exceed 4gm/day of acetaminophen. (Same as: [place] 325/10) No Longer Active 12/09/2016 [facility] Morphine 2 mg, 0.5 mL, Route: IVP, Drug form: SOLN, Q4H, Dosing Weight 78.636, kg, PRN Pain Score 4-6, Start date: 12/09/16 10:24:00 CDT, Stop date: 01/08/17 10:23:00 CDTNotes: (Same as:MORPhine Sulfate) No Longer Active 12/09/2016 [facility] Melatonin 3 mg, 1 tab, Route: PO, Drug form: TAB, Bedtime, Dosing Weight 78.636, kg, PRN as needed for insomnia, Start date: 12/09/16 10:24:00 CDT, Duration: 30 day, Stop date: 01/08/17 10:23:00 CDT, ..Notes: (Same as: Melatonin) No Longer Active 12/09/2016 [facility] Diphenhydramine 25 mg, 1 cap, Route: PO, Drug form: CAP, TID, Dosing Weight 78.636, kg, PRN Itching, Start date: 12/09/16 10:24:00 CDT, Duration: 30 day, Stop date: 01/08/17 10:23:00 CDTNotes: (Same as: Benadryl) No Longer Active 12/09/2016 [facility] tizanidine 4 mg, 1 tab, Route: PO, Drug form: TAB, Q8H, Dosing Weight 78.636, kg, PRN as needed for muscle spasm, Start date: 12/09/16 10:24:00 CDT, Duration: 30 day, Stop date: 01/08/17 10:23:00 CDTNotes: (Same As: Zanaflex) No Longer Active 12/09/2016 [facility] sennosides, MCC 8.6 mg, 1 tab, Route: PO, Drug Form: TAB, Dosing Weight 78.636, kg, Daily, PRN Constipation, Start date: 12/09/16 10:24:00 CDT, Duration: 30 day, Stop date: 01/08/17 10:23:00 CDTNotes: (Same as: Senokot) No Longer Active 12/09/2016 [facility] Phenergan 12.5 mg, 0.5 mL, Route: IVPB, Drug form: INJ, Q4H, Dosing Weight 78.636, kg, PRN Nausea & Vomiting, Start date: 12/09/16 10:24:00 CDT, Duration: 30 day, Stop date: 01/08/17 10:23:00 CDTNotes: Do not give IV push. (Same as: Phenergan) No Longer Active 12/09/2016 [facility] sodium chloride 0.9% 1000 ml INJ 1,000 mL 1,000 mL, Rate: 65 ml/hr, Infuse over: 15.4 hr, Route: IV, Dosing Weight 78.636 kg, Total Volume: 1,000, Start date: 12/09/16 10:24:00 CDT, Duration: 30 day, Stop date: 01/08/17 10:23:00 CDT No Longer Active 12/09/2016 [facility] cyclobenzaprine 10 mg, 1 tab, Route: PO, Drug form: TAB, TID, Dosing Weight 78.636, kg, PRN Spasm, Start date: 12/09/16 10:23:00 CDT, Duration: 30 day, Stop date: 01/08/17 10:22:00 CDTNotes: (Same As: Flexeril) No Longer Active 12/09/2016 [facility] Benzocaine 15 MG / Menthol 3.6 MG Lozenge [Cepacol Sore Throat Pain Relief 15/3.6] 1 lozenge, Route: PO, Drug Form: LANEY, Dosing Weight 78.636, kg, Q2H, PRN as needed for sore throat, Start date: 12/09/16 10:23:00 CDT, Duration: 30 day, Stop date: 01/08/17 10:22:00 CDTNotes: Cepacol lozenges Dispense 1 box=16 lozenges (Same As: Cepacol Lozenges) No Longer Active 12/09/2016 [facility] Ambien 10 mg, 2 tab, Route: PO, Drug form: TAB, Bedtime, Dosing Weight 78.636, kg, PRN Insomnia, Start date: 12/09/16 10:23:00 CDT, Duration: 30 day, Stop date: 01/08/17 10:22:00 CDTNotes: (Same As: Ambien) No Longer Active 12/09/2016 [facility] midazolam (ANES) Route: IV, Drug form: SOLN, ONCE, Stop date: 12/09/16 10:20:00 CDT Inactive 12/09/2016 [facility] Ondansetron 4 mg, 2 mL, Route: IVP, Drug form: INJ, ONCE, Dosing Weight 78.636, kg, PRN Nausea & Vomiting, Start date: 12/09/16 10:05:00 CDTNotes: (Same as: Zofran) MEDICATION WASTE Product Size: 4 mg Product Wasted: ___ mg Inactive 12/09/2016 [facility] Labetalol 10 mg, 2 mL, Route: IVP, Drug form: INJ, Q5Min, Dosing Weight 78.636, kg, PRN Elevated BP, Start date: 12/09/16 10:05:00 CDT, Duration: 5 doses or times, Stop date: 12/10/16 0:00:00 CDT Inactive 12/09/2016 [facility] Hydralazine 10 mg, 0.5 mL, Route: IVP, Drug form: INJ, Q20Min, Dosing Weight 78.636, kg, PRN Elevated BP, Start date: 12/09/16 10:05:00 CDT, Duration: 2 doses or times, Stop date: 12/10/16 0:00:00 CDTNotes: (Same as: Apresoline) Push over 5 minutes Inactive 12/09/2016 [facility] Hydromorphone 0.5 mg, 0.25 mL, Route: IVP, Drug form: INJ, Q5Min, Dosing Weight 78.636, kg, PRN Pain Score 7-10, Start date: 12/09/16 10:05:00 CDT, Duration: 4 doses or times, Stop date: 12/10/16 0:00:00 CDTNotes: Same as: Dilaudid Inactive 12/09/2016 [facility] Oxycodone 5 mg, 1 tab, Route: PO, Drug form: TAB, Q4H, Dosing Weight 78.636, kg, PRN Pain Score 7-10, Start date: 12/09/16 10:05:00 CDT, Duration: 30 day, Stop date: 01/08/17 10:04:00 CDTNotes: (Same as: Roxic odone) Inactive 12/09/2016 [facility] Flumazenil 0.2 mg, 2 mL, Route: IVP, Drug form: INJ, PRN, Dosing Weight 78.636, kg, PRN Benzodiazepine Reversal, Initial dose, Start date: 12/09/16 10:05:00 CDT, Duration: 30 day, Stop date: 01/08/17 10:04:00 C DTNotes: (Same as: Romazicon) Inactive 12/09/2016 [facility] Naloxone 0.4 mg, 1 mL, Route: IVP, Drug form: INJ, Q2MIN, Dosing Weight 78.636, kg, PRN Narcotic Reversal, Start date: 12/09/16 10:05:00 CDT, Duration: 8 doses or times, Stop date: 12/10/16 0:00:00 CDTNotes: Same as Narcan Inactive 12/09/2016 [facility] LR 1000 mL INJ (ANES) Route: IV, Total Volume: 1,000, Start date: 12/09/16 9:45:00 CDT, Stop date: 12/09/16 10:45:00 CDT Inactive 12/09/2016 [facility] gabapentin 300 MG Oral Capsule 300 mg, 1 cap, Route: PO, Drug form: CAP, ONCE, Dosing Weight 78.636, kg, Priority: NOW, Start date: 12/09/16 9:09:00 CDT, Stop date: 12/09/16 9:09:00 CDT Inactive 12/09/2016 [facility] Amlodipine 5 mg, 1 tab, Route: PO, Drug form: TAB, Daily, Dosing Weight 78.636, kg, Start date: 12/09/16 9:00:00 CDT, Duration: 30 day, Stop date: 01/07/17 9:00:00 CDTNotes: (Same as: Norvasc) No Longer Active 12/09/2016 [facility] Alprazolam 0.25 mg, PO, PRN Active 12/07/2016 [facility] Triamcinolone Acetonide in Absorbase 1 appl, TOP Active 12/07/2016 [facility] Hydroxyzine 25 mg, PO, QID Active 12/07/2016 [facility] Acetaminophen 325 MG / Hydrocodone Bitartrate 5 MG Oral Tablet 1 tab, PO, PRN No Longer Active 12/07/2016 [facility] Dilantin 500 mg, PO, Bedtime Active 12/07/2016 [facility] Allergies, Adverse Reactions, Alerts No Known Medication Allergies Immunizations Immunization Date Given Site Status Last Updated Comments Source pneumococcal 23-valent vaccine 12/10/2016 Left Deltoid completed [facility] Results Order Name Results Value Reference Range Date Interpretation Comments Source ELECTROLYTES AGAP 6.6 10.0 - 20.0 12/07/2016 [facility] ELECTROLYTES eGFR 102 12/07/2016 [...] should be multiplied by the estimated BMI. [facility] ELECTROLYTES Chloride Lvl 105 95 - 109 12/07/2016 [facility] ELECTROLYTES Potassium Lvl 4.6 3.5 - 5.1 12/07/2016 [facility] ELECTROLYTES CO2 32 24 - 32 12/07/2016 [facility] ELECTROLYTES Calcium Lvl 8.9 8.5 - 10.5 12/07/2016 [facility] ELECTROLYTES Glucose Lvl 74 70 - 99 12/07/2016 [facility] ELECTROLYTES Sodium Lvl 139 135 - 145 12/07/2016 [facility] ELECTROLYTES Creatinine Lvl 0.54 0.50 - 1.40 12/07/2016 [facility] ELECTROLYTES BUN 11 7 - 22 12/07/2016 [facility] HEMATOLOGY Basophils 0.7 0.0 - 1.0 12/07/2016 [facility] HEMATOLOGY Eosinophils 5.1 0.0 - 4.0 12/07/2016 [facility] HEMATOLOGY Segs-Bands # 4.0 1.5 - 8.1 12/07/2016 [facility] HEMATOLOGY Basophils # 0.1 0.0 - 0.2 12/07/2016 [facility] HEMATOLOGY Monocytes # 0.6 0.0 - 0.8 12/07/2016 [facility] HEMATOLOGY Lymphocytes # 2.4 1.0 - 5.5 12/07/2016 [facility] HEMATOLOGY Eosinophils # 0.4 0.0 - 0.5 12/07/2016 [facility] HEMATOLOGY Segs 53.7 45.0 - 75.0 12/07/2016 [facility] HEMATOLOGY Lymphocytes 32.6 20.0 - 40.0 12/07/2016 [facility] HEMATOLOGY Monocytes 7.9 2.0 - 12.0 12/07/2016 [facility] HEMATOLOGY WBC 7.4 3.7 - 10.4 12/07/2016 [facility] HEMATOLOGY Hct 39.6 36.0 - 48.0 12/07/2016 [facility] HEMATOLOGY MCV 90.3 80.0 - 98.0 12/07/2016 [facility] HEMATOLOGY MCHC 33.3 32.0 - 36.0 12/07/2016 [facility] HEMATOLOGY RDW 13.4 11.5 - 14.5 12/07/2016 [facility] HEMATOLOGY MCH 30.0 27.0 - 31.0 12/07/2016 [facility] HEMATOLOGY Hgb 13.2 12.0 - 16.0 12/07/2016 [facility] HEMATOLOGY RBC 4.38 4.20 - 5.40 12/07/2016 [facility] HEMATOLOGY MPV 7.5 7.4 - 10.4 12/07/2016 [facility] HEMATOLOGY Platelet 265 133 - 450 12/07/2016 [facility] Pathology Reports No Data Provided for This Section Diagnostic Reports No Data Provided for This Section Consultation Notes No Data Provided for This Section Discharge Summaries No Data Provided for This Section History and Physicals No Data Provided for This Section Vital Signs Vital Sign Value Date Comments Source Systolic (mm Hg) 129 12/10/2016 [facility] Diastolic (mm Hg) 79 12/10/2016 [facility] Heart Rate 80 12/10/2016 [facility] Respitory Rate 18 12/10/2016 [facility] Systolic (mm Hg) 110 12/10/2016 [facility] Diastolic (mm Hg) 69 12/10/2016 [facility] Respitory Rate 18 12/10/2016 [facility] Temperature Oral (F) 97.4 F 12/10/2016 [facility] Heart Rate 79 12/10/2016 [facility] Systolic (mm Hg) 109 12/10/2016 [facility] Diastolic (mm Hg) 57 12/10/2016 [facility] Temperature Oral (F) 98.1 F 12/10/2016 [facility] Heart Rate 80 12/10/2016 [facility] Respitory Rate 16 12/10/2016 [facility] Temperature Oral (F) 97.6 F 12/10/2016 [facility] Weight 78.636 12/09/2016 [facility] BMI Calculated 28.85 12/09/2016 [facility] Height 165.1 cm 12/09/2016 [facility] Weight 78.636 12/07/2016 [facility] BMI Calculated 28.85 12/07/2016 [facility] Height 165.1 cm 12/07/2016 [facility] Encounters Location Location Details Encounter Type Encounter Number Reason For Visit Attending Provider ADM Date DC Date Status Source [facility] Bedded Outpatient [id number] Steve Tam 12/09/2016 12/10/2016 [facility] Procedures Procedure Code Date Perfomer Comments Source Incision AND drainage [id number] [facility] Operative procedure on foot [id number] [facility] Procedure on back [id number] [facility] Tonsillectomy [id number] [facility] Assessment and Plan Assessment [...] RXs given D/W Tam Cano PA-C 12/10/2016 [facility] Plan of Care No Data Provided for This Section Social History Social History Date Source Social History TypeResponse Alcohol Past Smoking Status Former smoker; Type: Cigarettes; Number of years: 30; Stopped at age: 43; Exposure to Tobacco Smoke None; Cigarette Smoking Last 365 Days No; Reg Smoking Cessation Counseling No 12/07/2016 [facility] Family History No Data Provided for This Section Advance Directives No Data Provided for This Section Functional Status No Data Provided for This Section
--- OUTSIDE RECORDS SUMMARY | 2018-12-11 06:09 | XMS REPORT ---
[facility] Address Unknown Phone Unavailable Care Team Providers Care Pipe Inspector Name Role Phone ANSHUL CORLEY Unavailable Unavailable Problems This patient has no known problems. Allergies, Adverse Reactions, Alerts This patient has no known allergies or adverse reactions. Medications This patient has no known medications. Results Test Description Test Time Test Comments Text Results Atomic Results Result Comments PELVIS AP 1-2 VIEWS 2018-10-29 10:40:00 [place] [address] Patient Name: TAMMY ONTIVEROS MR #: [id number] : 1955 Age/Sex: 62/F Req #: [id number] [facility] Physician: ANSHUL CORLEY MD Ordered by: ANSHUL CORLEY MD Report #: [id number] Location: MED/SURG Room/Bed: [facility] Procedure: [id number] DX/PELVIS AP 1-2 VIEWS Exam Date: 10/29/18 Exam Time: 1010 REPORT STATUS: Signed EXAMINATION: PELVIS AP 1-2 VIEWS INDICATION: Postoperative COMPARISON: None FINDINGS: Status post right total hip replacement in anatomic alignment. No acute fracture. Postoperative subcutaneous emphysema and surgical skin lilibeth in place. Diffuse osteopenia. Severe left hip degenerative changes with ayyo-wa-shyp contact, subchondral sclerosis and osteophyte formation. Partially visualized degenerative changes of the lower lumbar spine. IMPRESSION: Anatomic alignment status post right total hip replacement. Signed by: Omari Abrams MD on 10/29/2018 10:42 AM Dictated By: OMARI ABRAMS MD [id number] Transcribed By: TAMARA on 10/29/181041 COPY TO: ANSHUL CORLEY MD
[2018-12-11] MEDS ORDERED: ROPIVACAINE 246.25 MG, EPINEPHRINE HCL 1:1000 1ML 0.5 MG, CLONIDINE HCL 0.08 MG, KETORO... INJ ONE ×5 (07:30)
[2018-12-11] MEDS ORDERED: TRANEXAMIC ACID 1,000 MG/10 ML ML ONE (07:50)
[2018-12-11] MEDS ORDERED: SODIUM CHLORIDE 0.9% 500ML 500 ML ONE (07:50)
[2018-12-11] MEDS ORDERED: VANCOMYCIN HCL 1,000 MG ONE (07:50)
[2018-12-11] MEDS ORDERED: CELECOXIB 200 MG CAP ONE (07:51)
[2018-12-11] MEDS ORDERED: BACITRACIN 50,000 UNIT VIAL ONE (07:51)
[2018-12-11] MEDS ORDERED: DEXAMETHASONE SOD PHOS 10 MG/1 ML VIAL ONE (07:52)
[2018-12-11] MEDS ORDERED: GABAPENTIN 300 MG CAP ONE (07:52)
[2018-12-11] MEDS ORDERED: CEFAZOLIN SOD 1 GM/NS 50ML 100 ML IV ONE (07:52)
[2018-12-11] MEDS ORDERED: BUPIVACAINE 7.5MG/ML /DEXTROSE 82.5MG/ML 2 ML AMP INJ ONE (08:11)
[2018-12-11 08:31] LABS: ANION GAP 16.1 mmol/L (8-16); BLOOD UREA NITROGEN 14 mg/dL (7-26); BUN/CREATININE RATIO 22 (6-25); CALCIUM 10.2 mg/dL (8.4-10.2); CARBON DIOXIDE 29 mmol/L (22-29); CHLORIDE 89 mmol/L (98-107); CREATININE, SERUM 0.65 mg/dL (0.57-1.11); EST GLOMERULAR FILTRATION RATE > 60 ML/MIN (60-); GLUCOSE 92 mg/dL (74-118); POTASSIUM 4.1 mmol/L (3.5-5.1); SODIUM 130 mmol/L (136-145)
[2018-12-11] MEDS ORDERED: ACETAMINOPHEN 1000 MG/100 ML 100 ML IV ONE (10:25)
[2018-12-11] MEDS ORDERED: HYDROCODONE/APAP 5MG-325MG TAB PO PRN (10:30)
[2018-12-11] MEDS ORDERED: DIPHENHYDRAMINE HCL INJ 50 MG/ML VIAL IM/IV PRN (10:30)
[2018-12-11] MEDS ORDERED: HYDROCODONE/APAP 7.5MG-325MG 1 EA TAB PO PRN (10:30)
[2018-12-11] MEDS ORDERED: ZOLPIDEM TARTRATE 5 MG TAB PO PRN (10:30)
[2018-12-11] MEDS ORDERED: PROMETHAZINE HCL (IM) 25 MG/ML VIAL INJ PRN (10:30)
[2018-12-11] MEDS ORDERED: ONDANSETRON HCL INJ 2MG/ML 2ML 2 MG/ML VIAL IV PRN (10:30)
[2018-12-11] MEDS ORDERED: DOCUSATE SODIUM 100 MG CAP PO PRN (10:30)
[2018-12-11] MEDS ORDERED: HYDROMORPHONE 2MG/ML 2 MG/ML ML ONE (10:40)
--- OUTSIDE RECORDS SUMMARY | 2018-12-11 10:58 | XMS REPORT | Continuity of Care Document ---
Author Author [employer] Organization [employer] Address Unknown Phone Unavailable Care Team Providers Care Hotel [employer] Motel Receptionist Name Role Phone [facility] [employer] Information [employer] Unavailable Unavailable Problems Problem Status Onset Date Classification Date Reported Comments Source LUMBAR STENOSIS, SPONDYLOSIS, DISC DEGEN Active 11/17/2016 [facility] COPD (Confirmed) Active Problem 12/13/2016 [facility] Goiter Active Problem 12/13/2016 [facility] Hypertension Active Problem 12/13/2016 [facility] Seizures Active Problem 12/13/2016 [facility] Lumbar stenosis Active Problem 12/13/2016 [facility] Medications Medication Details Route Status Patient Instructions Ordering Provider Order Date Source tizanidine 4 mg oral capsule 4 mg=1 cap, PO, Q8H, PRN for muscle spasms, # 90 cap, 0 Refill(s), Pharmacy: [facility]/pharmacy #[id number] Active 12/10/2016 [facility] clindamycin 150 mg oral capsule 150 mg=1 cap, PO, Q6H, X 5 day, # 20 cap, 0 Refill(s), Pharmacy: [facility]/pharmacy #[id number] Active 12/10/2016 [facility] {21 (Methylprednisolone 4 MG Oral Tablet [Medrol]) } Pack [Medrol Dosepak] See Instructions, PO, Take by mouth as directed on label., # 1 Pack, 0 Refill(s), Pharmacy: [facility]/pharmacy #[id number] Active 12/10/2016 [facility] Acetaminophen 325 MG / Hydrocodone Bitartrate 10 MG Oral Tablet [[place] 10/325] 1 tab, PO, Q4H, PRN for pain, X 4 day, # 24 tab, 0 Refill(s) Active 12/10/2016 [facility] Protonix 40 mg, Route: IVP, Drug form: INJ, Daily, Dosing Weight 78.636, kg, Start date: 12/10/16 9:00:00 CDT, Duration: 30 day, Stop date: 01/08/17 9:00:00 CDTNotes: For IV push reconstitute with 10 ml 0.9% sodium chloride and push over 2 minutes. (Same as: Protonix) Inactive 12/10/2016 [facility] pneumococcal capsular polysaccharide type 1 vaccine / pneumococcal capsular polysaccharide type 10A vaccine / pneumococcal capsular polysaccharide type 11A vaccine / pneumococcal capsular polysaccharide type 12F vaccine / pneumococcal capsular polysacchar 0.5 mL, Route: IM, Drug Form: INJ, Daily, Start date: 12/10/16 9:00:00 CDT, Stop date: 12/10/16 23:59:00 CDTNotes: (Same as: Pneumovax 23) Inactive 12/10/2016 [facility] Dilantin 500 mg, 5 cap, Route: PO, Drug form: ERCAP, Bedtime, Dosing Weight 78.636, kg, Start date: 12/09/16 21:00:00 CDT, Duration: 30 day, Stop date: 01/07/17 21:00:00 CDTNotes: (Same as: Dilantin) Do not open, crush, or chew. No Longer Active 12/10/2016 [facility] Dexamethasone 4 mg, 1 mL, Route: IVP, Drug form: INJ, Q12H, Dosing Weight 78.636, kg, Start date: 12/09/16 21:00:00 CDT, Duration: 30 day, Stop date: 01/08/17 9:00:00 CDTNotes: Concentration: 4mg/ml No Longer Active 12/10/2016 [facility] Cefazolin 2 gm, Route: IVPB, ABXQ8H, Dosing Weight 78.636, kg, Start date: 12/09/16 18:30:00 CDT, Duration: 24 hr, Stop date: 12/10/16 10:30:00 CDT, ABX Indication: Surgical ProphylaxisNotes: (Same As: Jayden Byrd zol) MEDICATION WASTE Product Size: 1000 mg Product Wasted: ___ mg No Longer Active 12/09/2016 [facility] Docusate Sodium 100 MG Oral Capsule [Colace] 100 mg, 1 cap, Route: PO, Drug form: CAP, BID, Dosing Weight 78.636, kg, Start date: 12/09/16 17:00:00 CDT, Duration: 30 day, Stop date: 01/08/17 9:00:00 CDTNotes: (Same as: Colace) (Do Not Crush) No Longer Active 12/09/2016 [facility] Benzocaine 15 MG / Menthol 3.6 MG Lozenge [Cepacol Sore Throat Pain Relief 15/3.6] 1 lozenge, Route: MUCOUS MEM, Drug Form: LANEY, Dosing Weight 78.636, kg, Q2H, PRN Sore Throat, Start date: 12/09/16 15:34:00 CDT, Stop date: 01/08/17 15:33:00 CDTNotes: Cepacol lozenges (Same As: Cepacol Lozenges) Inactive 12/09/2016 [facility] acetaminophen (ANES) Route: IV, Drug form: INJ, ONCE, Stop date: 12/09/16 12:21:00 CDT Inactive 12/09/2016 [facility] vasopressin (ANES) Route: IV, Drug form: INJ, ONCE, Stop date: 12/09/16 12:21:00 CDT Inactive 12/09/2016 [facility] neostigmine (ANES) Route: IV, Drug form: INJ, ONCE, Stop date: 12/09/16 12:21:00 CDT Inactive 12/09/2016 [facility] ondansetron (ANES) Route: IV, Drug form: INJ, ONCE, Stop date: 12/09/16 12:21:00 CDT Inactive 12/09/2016 [facility] glycopyrrolate (ANES) Route: IV, Drug form: INJ, ONCE, Stop date: 12/09/16 12:21:00 CDT Inactive 12/09/2016 [facility] ketOROLAC 30 mg/mL injectable solution 15 mg, 1 mL, Route: IV, Drug form: INJ, Q6H, Dosing Weight 78.636, kg, Start date: 12/09/16 12:00:00 CDT, Duration: 1 day, Stop date: 12/10/16 6:00:00 CDTNotes: (Same as:Toradol) IV bolus must be given >15 seconds. Give IM administration slowly and deeply into the muscle. Not for use > 4 days. No Longer Active 12/09/2016 [facility] Ofirmev 1,000 mg, 100 mL, Route: IV, Drug form: INJ, Q6H, Dosing Weight 78.636, kg, for > or=50 kg, Start date: 12/09/16 12:00:00 CDT, Duration: 2 doses or times, Stop date: 12/09/16 18:00:00 CDTNotes: Infuse over 15 minutes Do not exceed 4gm/day of acetaminophen MEDICATION WASTE Product Size: 1000 mg Product Wasted: ___ mg Inactive 12/09/2016 [facility] ceFAZolin (ANES) Route: IV, Drug form: INJ, ONCE, Stop date: 12/09/16 11:05:00 CDT Inactive 12/09/2016 [facility] 120 ACTUAT Albuterol 0.1 MG/ACTUAT / Ipratropium R[place]olt 0.02 MG/ACTUAT Metered Dose Inhaler [Combivent 20/100] 1 puff, Route: INHALER, Drug Form: AERO, Dosing Weight 78.636, kg, RQID, Start date: 12/09/16 11:00:00 CDT, Duration: 30 day, Stop date: 01/08/17 7:00:00 CDTNotes: Same as: Combivent Respimat WASTE: Aerosol - Return to Pharmacy No Longer Active 12/09/2016 [facility] fentaNYL (ANES) Route: IV, Drug form: INJ, ONCE, Stop date: 12/09/16 10:55:00 CDT Inactive 12/09/2016 [facility] ketAMINE (ANES) Route: IV, Drug form: INJ, ONCE, Stop date: 12/09/16 10:55:00 CDT Inactive 12/09/2016 [facility] propofol (ANES) Route: IV, Drug form: INJ, ONCE, Stop date: 12/09/16 10:55:00 CDT Inactive 12/09/2016 [facility] rocuronium (ANES) Route: IV, Drug form: INJ, ONCE, Stop date: 12/09/16 10:55:00 CDT Inactive 12/09/2016 [facility] ePHEDrine (ANES) Route: IV, Drug form: INJ, ONCE, Stop date: 12/09/16 10:55:00 CDT Inactive 12/09/2016 [facility] lidocaine (ANES) Route: IV, Drug form: INJ, ONCE, Stop date: 12/09/16 10:55:00 CDT Inactive 12/09/2016 [facility] Zofran 4 mg, 2 mL, Route: IV, Drug form: INJ, Q8H, Dosing Weight 78.636, kg, PRN Nausea, Start date: 12/09/16 10:25:00 CDT, Duration: 30 day, Stop date: 01/08/17 10:24:00 CDTNotes: (Same as: Zofran) MEDICATION WASTE Product Size: 4 mg Product Wasted: ___ mg No Longer Active 12/09/2016 [facility] Acetaminophen 325 MG / Hydrocodone Bitartrate 10 MG Oral Tablet [[place] 10/325] 1 tab, Route: PO, Drug Form: TAB, Dosing Weight 78.636, kg, Q4H, PRN Pain Score 1-3, Start date: 12/09/16 10:24:00 CDT, Duration: 30 day, Stop date: 01/08/17 10:23:00 CDTNotes: Do not exceed 4gm/day of acetaminophen. (Same as: [place] 325/10) No Longer Active 12/09/2016 [facility] Morphine 2 mg, 0.5 mL, Route: IVP, Drug form: SOLN, Q4H, Dosing Weight 78.636, kg, PRN Pain Score 4-6, Start date: 12/09/16 10:24:00 CDT, Stop date: 01/08/17 10:23:00 CDTNotes: (Same as:MORPhine Sulfate) No Longer Active 12/09/2016 [facility] Melatonin 3 mg, 1 tab, Route: PO, Drug form: TAB, Bedtime, Dosing Weight 78.636, kg, PRN as needed for insomnia, Start date: 12/09/16 10:24:00 CDT, Duration: 30 day, Stop date: 01/08/17 10:23:00 CDT, ..Notes: (Same as: Melatonin) No Longer Active 12/09/2016 [facility] Diphenhydramine 25 mg, 1 cap, Route: PO, Drug form: CAP, TID, Dosing Weight 78.636, kg, PRN Itching, Start date: 12/09/16 10:24:00 CDT, Duration: 30 day, Stop date: 01/08/17 10:23:00 CDTNotes: (Same as: Benadryl) No Longer Active 12/09/2016 [facility] tizanidine 4 mg, 1 tab, Route: PO, Drug form: TAB, Q8H, Dosing Weight 78.636, kg, PRN as needed for muscle spasm, Start date: 12/09/16 10:24:00 CDT, Duration: 30 day, Stop date: 01/08/17 10:23:00 CDTNotes: (Same As: Zanaflex) No Longer Active 12/09/2016 [facility] sennosides, DETENTION 8.6 mg, 1 tab, Route: PO, Drug Form: TAB, Dosing Weight 78.636, kg, Daily, PRN Constipation, Start date: 12/09/16 10:24:00 CDT, Duration: 30 day, Stop date: 01/08/17 10:23:00 CDTNotes: (Same as: Senokot) No Longer Active 12/09/2016 [facility] Phenergan 12.5 mg, 0.5 mL, Route: IVPB, Drug form: INJ, Q4H, Dosing Weight 78.636, kg, PRN Nausea & Vomiting, Start date: 12/09/16 10:24:00 CDT, Duration: 30 day, Stop date: 01/08/17 10:23:00 CDTNotes: Do not give IV push. (Same as: Phenergan) No Longer Active 12/09/2016 [facility] sodium chloride 0.9% 1000 ml INJ 1,000 mL 1,000 mL, Rate: 65 ml/hr, Infuse over: 15.4 hr, Route: IV, Dosing Weight 78.636 kg, Total Volume: 1,000, Start date: 12/09/16 10:24:00 CDT, Duration: 30 day, Stop date: 01/08/17 10:23:00 CDT No Longer Active 12/09/2016 [facility] cyclobenzaprine 10 mg, 1 tab, Route: PO, Drug form: TAB, TID, Dosing Weight 78.636, kg, PRN Spasm, Start date: 12/09/16 10:23:00 CDT, Duration: 30 day, Stop date: 01/08/17 10:22:00 CDTNotes: (Same As: Flexeril) No Longer Active 12/09/2016 [facility] Benzocaine 15 MG / Menthol 3.6 MG Lozenge [Cepacol Sore Throat Pain Relief 15/3.6] 1 lozenge, Route: PO, Drug Form: LANEY, Dosing Weight 78.636, kg, Q2H, PRN as needed for sore throat, Start date: 12/09/16 10:23:00 CDT, Duration: 30 day, Stop date: 01/08/17 10:22:00 CDTNotes: Cepacol lozenges Dispense 1 box=16 lozenges (Same As: Cepacol Lozenges) No Longer Active 12/09/2016 [facility] Ambien 10 mg, 2 tab, Route: PO, Drug form: TAB, Bedtime, Dosing Weight 78.636, kg, PRN Insomnia, Start date: 12/09/16 10:23:00 CDT, Duration: 30 day, Stop date: 01/08/17 10:22:00 CDTNotes: (Same As: Ambien) No Longer Active 12/09/2016 [facility] midazolam (ANES) Route: IV, Drug form: SOLN, ONCE, Stop date: 12/09/16 10:20:00 CDT Inactive 12/09/2016 [facility] Ondansetron 4 mg, 2 mL, Route: IVP, Drug form: INJ, ONCE, Dosing Weight 78.636, kg, PRN Nausea & Vomiting, Start date: 12/09/16 10:05:00 CDTNotes: (Same as: Zofran) MEDICATION WASTE Product Size: 4 mg Product Wasted: ___ mg Inactive 12/09/2016 [facility] Labetalol 10 mg, 2 mL, Route: IVP, Drug form: INJ, Q5Min, Dosing Weight 78.636, kg, PRN Elevated BP, Start date: 12/09/16 10:05:00 CDT, Duration: 5 doses or times, Stop date: 12/10/16 0:00:00 CDT Inactive 12/09/2016 [facility] Hydralazine 10 mg, 0.5 mL, Route: IVP, Drug form: INJ, Q20Min, Dosing Weight 78.636, kg, PRN Elevated BP, Start date: 12/09/16 10:05:00 CDT, Duration: 2 doses or times, Stop date: 12/10/16 0:00:00 CDTNotes: (Same as: Apresoline) Push over 5 minutes Inactive 12/09/2016 [facility] Hydromorphone 0.5 mg, 0.25 mL, Route: IVP, Drug form: INJ, Q5Min, Dosing Weight 78.636, kg, PRN Pain Score 7-10, Start date: 12/09/16 10:05:00 CDT, Duration: 4 doses or times, Stop date: 12/10/16 0:00:00 CDTNotes: Same as: Dilaudid Inactive 12/09/2016 [facility] Oxycodone 5 mg, 1 tab, Route: PO, Drug form: TAB, Q4H, Dosing Weight 78.636, kg, PRN Pain Score 7-10, Start date: 12/09/16 10:05:00 CDT, Duration: 30 day, Stop date: 01/08/17 10:04:00 CDTNotes: (Same as: Roxic odone) Inactive 12/09/2016 [facility] Flumazenil 0.2 mg, 2 mL, Route: IVP, Drug form: INJ, PRN, Dosing Weight 78.636, kg, PRN Benzodiazepine Reversal, Initial dose, Start date: 12/09/16 10:05:00 CDT, Duration: 30 day, Stop date: 01/08/17 10:04:00 C DTNotes: (Same as: Romazicon) Inactive 12/09/2016 [facility] Naloxone 0.4 mg, 1 mL, Route: IVP, Drug form: INJ, Q2MIN, Dosing Weight 78.636, kg, PRN Narcotic Reversal, Start date: 12/09/16 10:05:00 CDT, Duration: 8 doses or times, Stop date: 12/10/16 0:00:00 CDTNotes: Same as Narcan Inactive 12/09/2016 [facility] LR 1000 mL INJ (ANES) Route: IV, Total Volume: 1,000, Start date: 12/09/16 9:45:00 CDT, Stop date: 12/09/16 10:45:00 CDT Inactive 12/09/2016 [facility] gabapentin 300 MG Oral Capsule 300 mg, 1 cap, Route: PO, Drug form: CAP, ONCE, Dosing Weight 78.636, kg, Priority: NOW, Start date: 12/09/16 9:09:00 CDT, Stop date: 12/09/16 9:09:00 CDT Inactive 12/09/2016 [facility] Amlodipine 5 mg, 1 tab, Route: PO, Drug form: TAB, Daily, Dosing Weight 78.636, kg, Start date: 12/09/16 9:00:00 CDT, Duration: 30 day, Stop date: 01/07/17 9:00:00 CDTNotes: (Same as: Norvasc) No Longer Active 12/09/2016 [facility] Alprazolam 0.25 mg, PO, PRN Active 12/07/2016 [facility] Triamcinolone Acetonide in Absorbase 1 appl, TOP Active 12/07/2016 [facility] Hydroxyzine 25 mg, PO, QID Active 12/07/2016 [facility] Acetaminophen 325 MG / Hydrocodone Bitartrate 5 MG Oral Tablet 1 tab, PO, PRN No Longer Active 12/07/2016 [facility] Dilantin 500 mg, PO, Bedtime Active 12/07/2016 [facility] Allergies, Adverse Reactions, Alerts No Known Medication Allergies Immunizations Immunization Date Given Site Status Last Updated Comments Source pneumococcal 23-valent vaccine 12/10/2016 Left Deltoid completed [employer] [facility] Results Order Name Results Value Reference Range Date Interpretation Comments Source ELECTROLYTES AGAP 6.6 10.0 - 20.0 12/07/2016 [facility] ELECTROLYTES eGFR 102 12/07/2016 Result Comment: [...] should be multiplied by the estimated BMI. [facility] ELECTROLYTES Chloride Lvl 105 95 - 109 12/07/2016 [facility] ELECTROLYTES Potassium Lvl 4.6 3.5 - 5.1 12/07/2016 [facility] ELECTROLYTES CO2 32 24 - 32 12/07/2016 [facility] ELECTROLYTES Calcium Lvl 8.9 8.5 - 10.5 12/07/2016 [facility] ELECTROLYTES Glucose Lvl 74 70 - 99 12/07/2016 [facility] ELECTROLYTES Sodium Lvl 139 135 - 145 12/07/2016 [facility] ELECTROLYTES Creatinine Lvl 0.54 0.50 - 1.40 12/07/2016 [facility] ELECTROLYTES BUN 11 7 - 22 12/07/2016 [facility] HEMATOLOGY Basophils 0.7 0.0 - 1.0 12/07/2016 [facility] HEMATOLOGY Eosinophils 5.1 0.0 - 4.0 12/07/2016 [facility] HEMATOLOGY Segs-Bands # 4.0 1.5 - 8.1 12/07/2016 [facility] HEMATOLOGY Basophils # 0.1 0.0 - 0.2 12/07/2016 [facility] HEMATOLOGY Monocytes # 0.6 0.0 - 0.8 12/07/2016 [facility] HEMATOLOGY Lymphocytes # 2.4 1.0 - 5.5 12/07/2016 [facility] HEMATOLOGY Eosinophils # 0.4 0.0 - 0.5 12/07/2016 [facility] HEMATOLOGY Segs 53.7 45.0 - 75.0 12/07/2016 [facility] HEMATOLOGY Lymphocytes 32.6 20.0 - 40.0 12/07/2016 [facility] HEMATOLOGY Monocytes 7.9 2.0 - 12.0 12/07/2016 [facility] HEMATOLOGY WBC 7.4 3.7 - 10.4 12/07/2016 [facility] HEMATOLOGY Hct 39.6 36.0 - 48.0 12/07/2016 [facility] HEMATOLOGY MCV 90.3 80.0 - 98.0 12/07/2016 [facility] HEMATOLOGY MCHC 33.3 32.0 - 36.0 12/07/2016 [facility] HEMATOLOGY RDW 13.4 11.5 - 14.5 12/07/2016 [facility] HEMATOLOGY MCH 30.0 27.0 - 31.0 12/07/2016 [facility] HEMATOLOGY Hgb 13.2 12.0 - 16.0 12/07/2016 [facility] HEMATOLOGY RBC 4.38 4.20 - 5.40 12/07/2016 [facility] HEMATOLOGY MPV 7.5 7.4 - 10.4 12/07/2016 [facility] HEMATOLOGY Platelet 265 133 - 450 12/07/2016 [facility] Pathology Reports No Data Provided for This Section Diagnostic Reports No Data Provided for This Section Consultation Notes No Data Provided for This Section Discharge Summaries No Data Provided for This Section History and Physicals No Data Provided for This Section Vital Signs Vital Sign Value Date Comments Source Systolic (mm Hg) 129 12/10/2016 [facility] Diastolic (mm Hg) 79 12/10/2016 [facility] Heart Rate 80 12/10/2016 [facility] Respitory Rate 18 12/10/2016 [facility] Systolic (mm Hg) 110 12/10/2016 [facility] Diastolic (mm Hg) 69 12/10/2016 [facility] Respitory Rate 18 12/10/2016 [facility] Temperature Oral (F) 97.4 F 12/10/2016 [facility] Heart Rate 79 12/10/2016 [facility] Systolic (mm Hg) 109 12/10/2016 [facility] Diastolic (mm Hg) 57 12/10/2016 [facility] Temperature Oral (F) 98.1 F 12/10/2016 [facility] Heart Rate 80 12/10/2016 [facility] Respitory Rate 16 12/10/2016 [facility] Temperature Oral (F) 97.6 F 12/10/2016 [facility] Weight 78.636 12/09/2016 [facility] BMI Calculated 28.85 12/09/2016 [facility] Height 165.1 cm 12/09/2016 [facility] Weight 78.636 12/07/2016 [facility] BMI Calculated 28.85 12/07/2016 [facility] Height 165.1 cm 12/07/2016 [facility] Encounters Location Location Details Encounter Type Encounter Number Reason For Visit Attending Provider ADM Date DC Date Status Source [facility] Bedded Outpatient [id number] Steve Tam 12/09/2016 12/10/2016 [facility] Procedures Procedure Code Date Perfomer Comments Source Incision AND drainage [id number] [facility] Operative procedure on foot [id number] [facility] Procedure on back [id number] [facility] Tonsillectomy [id number] [facility] Assessment and Plan Assessment and Plan [...] RXs given D/W Tam Cano PA-C 12/10/2016 [facility] Plan of Care No Data Provided for This Section Social History Social History Date Source Social History TypeResponse Alcohol Past Smoking Status Former smoker; Type: Cigarettes; Number of years: 30; Stopped at age: 43; Exposure to Tobacco Smoke None; Cigarette Smoking Last 365 Days No; Reg Smoking Cessation Counseling No 12/07/2016 [facility] Family History No Data Provided for This Section Advance Directives No Data Provided for This Section Functional Status No Data Provided for This Section
--- OUTSIDE RECORDS SUMMARY | 2018-12-11 10:58 | XMS REPORT | Clinical Summary ---
Author Author [facility] Address Unknown Phone Unavailable Care Team Providers Care Waste Chopper Name Role Phone Souleymane Santiago MD PCP [...] Benign. This facility is accredited by [employer] [place] for Mammography. A negative x-ray report should not delay biopsy if a dominant or clinically suspicious mass is present.Not all cancers are identified by x-ray. [id number] Performing Organization Address City/State/Zipcode Phone Number [facility] [address] [place] [address] * Mammo Breast Diagnostic Tomosynthesis Left (12/06/2018 [...] Benign. This facility is accredited by [employer] [place] for Mammography. A negative x-ray report should not delay biopsy if a dominant or clinically suspicious mass is present.Not all cancers are identified by x-ray. [facility] Performing Organization Address [facility] Phone Number [facility] [address] [place] [address] * Mammo Breast Screen Tomosynthesis Bilateral (10/17/2018 1:30 PM CDT) Specimen Narrative Performed At PROCEDURE: MAMMO BREAST SCREEN [facility]OS[facility]THESIS [facility] Computer aided detection was utilized for the [...] imagings. This facility is accredited by [employer] [place] for Mammography. A negative x-ray report should not delay biopsy if a dominant or clinically suspicious mass is present.Not all cancers are identified by x-ray. [address] Organization Address [facility] Phone Number [facility] [address] [place] [address] * XR Chest 2 Vw (10/11/2018 1:47 PM CDT) Specimen Narrative Performed At EXAMINATION:XR CHEST 2 VW [facility] CLINICAL HISTORY:Z01.818 Encounter for other preprocedural examination, Z01.818 COMPARISON: None . IMPRESSION: Cardiomediastinal silhouette and pulmonary vasculature are within normal limits. Lungs are clear. No pleural effusion or pneumothorax. Bones are unremarkable. [id number] Procedure Note Hm Interface, Radiology Results Incoming - 10/11/2018 1:58 PM CDT EXAMINATION: XR CHEST 2 VW CLINICAL HISTORY: Z01.818 Encounter for other preprocedural examination, Z01.818 COMPARISON: None . IMPRESSION: Cardiomediastinal silhouette and pulmonary vasculature are within normal limits. Lungs are clear. No pleural effusion or pneumothorax. Bones are unremarkable. [id number] Performing Organization Address City/State/Zipcode Phone Number [facility] [address] [place] [address] after 12/10/2017 Insurance Type Payer Benefit Subscriber ID Effective Phone Address Plan / Dates Group PPO BCBS ANTHEM xxxxxxxxxxxx 2017-P [facility] resent
[2018-12-11] MEDS ORDERED: FENTANYL CITRATE/PF 100MCG/2 ML INJ ONE ×2 (11:03→18:44)
--- NOTE | 2018-12-11 11:25 | Diagnostic Imaging Report ---
Pelvis, 1 view. History: Postop. Comparison: 10/29/2018. Findings: New total left hip prosthesis is present with acetabular and femoral components in anatomic alignment. Overlying postsurgical air and skin lilibeth are now present. Prior right hip replacement is also again noted. IMPRESSION: Status post left hip total replacement in anatomic position. Signed by: Rudy Penaloza on 12/11/2018 11:21 AM
[2018-12-11] MEDS ORDERED: MORPHINE SULFATE 2 MG/ML SYR 1ML ONE (13:11)
[2018-12-11 14:27] VITALS: BP 113/61
--- NOTE | 2018-12-11 14:30 | NUR ---
Received patient lying transferred from PACU. Awake, alert, respiration even and unlabored without SOB. Call light in reach.
[2018-12-11] MEDS ORDERED: LIDOCAINE HCL 2% LOCAL INJ 5 ML SDV VIAL INJ ONE (14:41)
[2018-12-11] MEDS ORDERED: SEVOFLURANE INHAL SOLN 250 ML PEN BTL ONE (14:41)
[2018-12-11] MEDS ORDERED: ROCURONIUM BROMIDE 10 MG/ML 5ML VIAL ONE (14:41)
[2018-12-11] MEDS ORDERED: PROPOFOL IV EMULSION 10 MG/ML 20 ML VIAL ONE (14:41)
[2018-12-11] MEDS ORDERED: ONDANSETRON HCL INJ 2MG/ML 2ML 2 MG/ML VIAL ONE (14:41)
[2018-12-11] MEDS ORDERED: LIDOCAINE HCL 2% JELLY 5 ML TUBE ONE (14:41)
[2018-12-11 14:45] LABS: BASOPHILS # (AUTO) 0.1 (0.0-0.1); BASOPHILS % 0.2 % (0.0-1.0); HEMATOCRIT 29.7 % (34.2-44.1); HEMOGLOBIN 9.9 g/dL (12.0-16.0); LYMPHOCYTES # (AUTO) 0.9 (1.0-3.2); LYMPHOCYTES % 4.1 % (18.0-39.1); MEAN CORPUSCULAR HEMOGLOBIN 31.4 pg (28-32); MEAN CORPUSCULAR HGB CONC 33.3 g/dL (31-35); MEAN CORPUSCULAR VOLUME 94.3 fL (81-99); MONOCYTES % 4.5 % (4.4-11.3); NEUTROPHILS # (AUTO) 19.7 (2.1-6.9); NEUTROPHILS % 90.5 % (38.7-80.0); PLATELET COUNT 336 x10e3/uL (140-360); RED BLOOD COUNT 3.15 x10e6/uL (3.6-5.1); RED CELL DISTRIBUTION WIDTH 12.6 % (11.7-14.4)
[2018-12-11] MEDS ORDERED: HYDROCODONE/APAP 10MG-325MG TAB PO PRN (14:45)
[2018-12-11 15:02] VITALS: BP 113/61
[2018-12-11] MEDS: KETOROLAC TROMETHAMINE 30 MG/ML VIAL IV PRN (15:06)
[2018-12-11] MEDS: SODIUM CHLORIDE 0.9% 1000ML 1,000 ML IV SCH (15:15)
--- NOTE | 2018-12-11 16:03 | NUR ---
Patient voided at this time.
--- NOTE | 2018-12-11 16:04 | NUR ---
Pain uncontrolled at this time. Will evaluate medications and treat accordingly
[2018-12-11] MEDS: CEFAZOLIN SOD 1 GM/NS 50ML 50 ML IV SCH (16:21)
[2018-12-11] MEDS ORDERED: SODIUM CHLORIDE 0.9% 250ML 250 ML ONE (16:25)
[2018-12-11] MEDS: ASPIRIN 325 MG TAB PO SCH (16:34)
[2018-12-11] MEDS: ACETAMINOPHEN 1000 MG/100 ML IV PRN (16:35)
[2018-12-11] MEDS: ACETAMINOPHEN 1000 MG/100 ML IV SCH ×2 (16:41→22:00)
[2018-12-11] MEDS: CALCIUM CARBONATE 500 MG CHEWABLE TABS PO PRN (17:33)
[2018-12-11] MEDS: CELECOXIB 200 MG CAP PO SCH (17:42)
--- NOTE | 2018-12-11 18:07 | Operative Report ---
DATE OF PROCEDURE: 12/11/2018 SURGEON: Steve Aaron MD BANANA LOADER: Nic Mccallum PA-C. PREOPERATIVE DIAGNOSIS: Osteoarthritis, left hip. POSTOPERATIVE DIAGNOSIS: Osteoarthritis, left hip. PROCEDURE: Left total hip arthroplasty. INDICATIONS: The patient is a 62-year-old lady, who has end-stage arthritis of her left hip. She has failed conservative management and would like to proceed with a left total hip replacement. She had a right total hip replacement about two months ago. She is doing well and understands the plan of care. PROCEDURE IN DETAIL: The patient was brought to the operating room and placed under general anesthetic. She received prophylactic antibiotics and tranexamic acid in the holding area. Her history of previous back issues precluded the option of spinal anesthetic. She was positioned in the right lateral decubitus position. Her left hip was prepped and draped in a sterile manner. A preoperative time-out was performed. A limited incision posterior approach was made to the left hip. Hemostasis was obtained with electrocautery. The gluteal muscle was split in line with its fibers. A self-retaining Charnley retractor was placed. Care was taken to avoid injury to the sciatic nerve. The posterior capsule was carefully exposed and further hemostasis was obtained with electrocautery. The capsule was released and a large joint effusion was noted. Clear synovial fluid was evacuated from the surgical site. The hip was dislocated and an oscillating saw was used to resect the femoral head. Acetabular retractors were placed. Massive amount of intra-articular inflammation was noted. This was excised with electrocautery. Some bleeding was encountered. The socket was then sequentially reamed to 53 mm. This accomplished bleeding hemispherical cancellous bone. A Adam Biomet 54 mm outer diameter OsseoTi socket was then impacted into place. Good secure fixation was obtained. The hip had been thoroughly irrigated with a shower tip pulsatile lavage prior to implantation. A fixation was augmented with a single 20 mm cancellous screw placed into the ilium. Marginal osteophytes were further removed. A highly cross-linked polyethylene liner was then impacted into place. Care was taken to make sure that there was no evidence of soft tissue interposition. A portion of a 100 mL premixed pericapsular LUCAS injection was placed into the surrounding acetabular tissue. Attention was then directed towards the proximal femur. A box cutting osteotome and taper pin reamer were used to establish entry to the femoral canal. The taper lock broaches were impacted. A size 11 stem had good canal fill and stability for trial reduction. A standard 36 mm head was felt to restore appropriate limb length and have good stability and a full arc of motion. The trial implants were removed. The hip was further irrigated with a shower tip pulsatile lavage. The implants were seated and a final reduction with a ceramic head was performed. Care was taken to carefully repair the posterior capsule. 500 mg of vancomycin powder were sprinkled into the surgical wound. The proximal tensor fascia and gluteal fascia were closed with interrupted #2 Ethibond. The skin was closed with subcuticular Vicryl and lilibeth. A sterile Aquacel bandage was applied. The patient was returned to the supine position, extubated and transported to the recovery room in stable condition. Estimated blood loss was 150 mL. All needle and sponge counts were correct. Steve Aaron MD DR/ADRIANE /[id number]
[2018-12-11] MEDS ORDERED: MIDAZOLAM HCL 2 MG/2 ML VIAL ONE (18:44)
--- NOTE | 2018-12-11 18:56 | NUR ---
Call placed to dr. rowland to inquire about a one time dose for pain. Patient continues to c/o pain 8/10 to her left hip. PRN pain meds given at this time.
--- NOTE | 2018-12-11 19:12 | NUR ---
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 Respiration even and unlabored without SOB. Call light in reach.
[2018-12-11 20:00] VITALS: BP 117/55
--- NOTE | 2018-12-11 20:00 | NUR ---
spoke to dr rowland in regards to pain mngt. new orders received.
--- NOTE | 2018-12-11 20:00 | NUR ---
pt received. pt assessed. no ss of distress noted. pt co pain to left hip. discussed pain mngt poc. verbalized understanding. awaiting return phone call from dr rowland in regards to pain mngt. left hip brielle cdi. will cont to follow poc. call hanks within reach.
[2018-12-11] MEDS ORDERED: PHENYTOIN SODIUM EXT REL 100 MG CAP PO SCH (21:00)
[2018-12-11] MEDS ORDERED: PHENYTOIN SODIUM 600 MG PO SCH (21:00)
[2018-12-11] MEDS: HYDROMORPHONE 1MG/1ML INJ IV PRN (21:30)
[2018-12-12] VITALS: BP 113/52
[2018-12-12] MEDS: CEFAZOLIN SOD 1 GM/NS 50ML 50 ML IV SCH ×2 (01:11→07:53)
[2018-12-12] MEDS: SODIUM CHLORIDE 0.9% 1000ML 1,000 ML IV SCH (01:15)
[2018-12-12] MEDS: KETOROLAC TROMETHAMINE 30 MG/ML VIAL IV PRN ×2 (02:07→07:44)
[2018-12-12 04:00] VITALS: BP 110/55
[2018-12-12] MEDS: ACETAMINOPHEN 1000 MG/100 ML IV SCH ×2 (04:00→10:20)
--- NOTE | 2018-12-12 04:25 | NUR ---
pt sleeping. no ss of distress noted. call hanks within reach.
[2018-12-12 05:59] LABS: BASOPHILS # (AUTO) 0.1 (0.0-0.1); BASOPHILS % 0.5 % (0.0-1.0); EOSINOPHILS # (AUTO) 0.1 (0.0-0.4); EOSINOPHILS % 1.3 % (0.0-6.0); HEMATOCRIT 24.7 % (34.2-44.1); HEMOGLOBIN 8.3 g/dL (12.0-16.0); LYMPHOCYTES # (AUTO) 1.2 (1.0-3.2); MEAN CORPUSCULAR HEMOGLOBIN 30.9 pg (28-32); MEAN CORPUSCULAR HGB CONC 33.6 g/dL (31-35); MEAN CORPUSCULAR VOLUME 91.8 fL (81-99); MONOCYTES # (AUTO) 0.6 (0.2-0.8); MONOCYTES % 6.1 % (4.4-11.3); NEUTROPHILS % 79.4 % (38.7-80.0); PLATELET COUNT 256 x10e3/uL (140-360); RED BLOOD COUNT 2.69 x10e6/uL (3.6-5.1); RED CELL DISTRIBUTION WIDTH 12.4 % (11.7-14.4)
[2018-12-12] MEDS: HYDROMORPHONE 1MG/1ML INJ IV PRN ×2 (06:08→10:20)
--- NOTE | 2018-12-12 06:44 | Consultation ---
DATE OF CONSULTATION: REASON FOR CONSULTATION: Postop medical management. HISTORY OF PRESENT ILLNESS: The patient is a 63-year-old lady, status post left hip arthroplasty, who had some increased pain overnight, but is currently doing well with a shot Dilaudid. REVIEW OF SYSTEMS: Currently, she states she denies any fever, chills, nausea, vomiting, headache, shortness of breath, dizziness, diarrhea, or chest pain review of systems. PAST MEDICAL HISTORY: Significant for hypertension. MEDICATIONS: See MAR. ALLERGIES: NONE. SOCIAL HISTORY: Former smoker, used to smoke up to 2 packs per day. FAMILY HISTORY: Noncontributory. PHYSICAL EXAMINATION: VITAL SIGNS: Temperature 98.6, pulse 76, blood pressure 136/74, sats 98% on room air. GENERAL: She is in no apparent distress, lying in bed. NECK: Supple. No lymphadenopathy. CARDIOVASCULAR: Regular rate and rhythm. LUNGS: Clear to auscultation bilaterally. ABDOMEN: Good bowel sounds. Soft, nontender. EXTREMITIES: No clubbing or cyanosis. NEUROLOGIC: Nonfocal. ASSESSMENT AND PLAN: 1. Left hip pain. We will continue with postoperative care and start physical therapy. 2. Anemia. Check a CBC. 3. Leukocytosis. Unsure of the etiology. The patient denies any fevers or any type of signs of infection. So, we will repeat the CBC this morning with the white count. 4. Hypertension. Continue with her medications and monitoring of her blood pressure. Please see hospital chart for full details. MD FRANCIS Becerril/ADRIANE /[id number]
--- NOTE | 2018-12-12 07:07 | NUR ---
Received patient lying in bed with eyes open, respiration even and unlabored without SOB. call light in reach.
[2018-12-12 07:33] VITALS: BP 99/46
--- NOTE | 2018-12-12 07:45 | NUR ---
DR CUMMINGS OFFICE PREARRANGED FOLLOWING DISCHARGE PLAN OF: HOME HEALTH WITH [facility] CONFIRMED WITH [facility] [phone] DME 3 IN ONE COMMODE. AND ROLLING WALKER WITH WHEELS AND CPM. PROVIDED BY [employer] [phone] IMM SIGNED AND ON CHART COPY LEFT WITH PATIENT GAVE CARD FOR QUESTIONS AND OR CONCERNS.
[2018-12-12] MEDS: CELECOXIB 200 MG CAP PO SCH (07:50)
[2018-12-12] MEDS: ASPIRIN 325 MG TAB PO SCH (07:50)
--- NOTE | 2018-12-12 07:52 | NUR ---
Informed Dr. Joyce of lab results. No new orders
[2018-12-12] MEDS ORDERED: ONDANSETRON HCL 4 MG ORAL DISINTEGRATING TAB PO PRN (08:45)
[2018-12-12] MEDS: CALCIUM CARBONATE 500 MG CHEWABLE TABS PO PRN (08:58)
[2018-12-12] MEDS ORDERED: OLMESARTAN 20 MG TAB PO SCH (09:00)
[2018-12-12] MEDS ORDERED: DOCUSATE SODIUM 100 MG CAP PO SCH (09:00)
[2018-12-12] MEDS ORDERED: SPIRONOLACTONE 25 MG TAB PO SCH (09:00)
[2018-12-12 09:10] VITALS: BP 99/46
[2018-12-12] MEDS: ACETAMINOPHEN 1000 MG/100 ML IV PRN (10:32)
[2018-12-12 12:12] VITALS: BP 108/53
--- NOTE | 2018-12-12 12:45 | NUR ---
IV to right hand discontinued, catheter tip intact, no bleeding noted. call light in reach.
--- NOTE | 2018-12-12 12:54 | NUR ---
Patient is transported for discharge. Belongings are with the spouse.
[2018-12-12] MEDS ORDERED: ACETAMINOPHEN 650 MG SUPP PR PRN (15:00)
== END 2018-12-12 12:54 | disposition home or self-care (01) | DRG 470 ==
LOC: OR 06:02 → PACU V 10:29 → MED/SURG 14:17
PROVIDERS: ADMIT Specialist; ATTEND Specialist
PROC: 0SRB03A Replacement of Left Hip Joint with Ceramic Synthetic Substitute, Uncemented, Open Approach (ICD-10-PCS; principal; 2018-12-11 09:00)
DX: M16.0 Bilateral primary osteoarthritis of hip (principal); I10 Essential (primary) hypertension; D64.9 Anemia, unspecified; D72.829 Elevated white blood cell count, unspecified; F17.210 Nicotine dependence, cigarettes, uncomplicated; Z96.641 Presence of right artificial hip joint
CPT/HCPCS: 36415; 72170; 80048; 85025; 86850; 86900; 86920; 96367; 96375; 96376; 97139; C1713; J0171; J0690; J1100; J1170; J1885; J2001; J2250; J2270; J2405; J2795; J3010; J3370; J7030; J7040; J7050